=== PATIENT | female | born 1965 | race Caucasian/White ===

== ENCOUNTER → 2020-02-22 19:02 | Outpatient (CLI) | payer MEDICARE, SELFPAY ==
--- NOTE | ~2020-02-22 | XR_ITS ---
EXAMINATION: XR wrist LT 2V EXAM DATE: 02/22/2020 19:27 INDICATION: No known recent injury provided at this time. Pain of the left wrist. TECHNIQUE: Left wrist frontal, frontal with ulnar deviation, oblique and lateral projections obtained and reviewed. Correlation is made to left hand exam 08/30/2018. FINDINGS: Left wrist scapholunate joint space is maintained. There has been interval progression in the noticeable periarticular osteopenia, which can be a finding of rheumatoid arthritis. There are no bony erosions identified. 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 There are a rterial calcifications, arteriosclerosis. There are no acute fractures identified. No radiopaque fore ign bodies identified. IMPRESSION: Periarticular osteopenia. Reviewed, dictated and finalized at location G. IMPRESSION: Periarticular osteopenia.
== END ==
PROVIDERS: PCP Family Medicine; Visit Provider Family Medicine
DX: M25.532 Pain in left wrist (principal)
CPT/HCPCS: 73100

== ENCOUNTER 2021-04-24 11:30 | Outpatient (CLI) | payer MEDICARE, SELFPAY ==
[2021-04-24 19:25] LABS: Basophils Absolute Auto 0.1 K/mm3 (0.0-0.1); Basophils Percent Auto 1.1 % (0.2-1.2); Eosinophils Absolute Auto 0.5 K/mm3 (0-0.3); Eosinophils Percent Auto 7.1 % (0-4.4); Hematocrit 32.9 % (37.0-47.0); Hemoglobin 10.2 g/dL (12.0-15.0); Immature Granulocyte Absolute 0.01 K/mm3 (0.00-0.031); Immature Granulocyte Percent A 0.2 % (0-0.5); Lymphocytes Absolute Auto 1.65 K/mm3 (0.9-3.2); Lymphocytes Percent Auto 25.9 % (18.3-44.2); Mean Corpuscular Hemoglobin 26.4 pg (26-34); Mean Corpuscular Volume 85.2 fl (80-100); Mean Platelet Volume 11.1 fl (7.4-10.4); Monocytes Absolute Auto 0.5 K/mm3 (0.1-0.6); Neutrophils Absolute Auto 3.7 K/mm3 (1.3-6.7); Neutrophils Percent Auto 57.7 % (45.5-73.1); Platelet Count Result 279 k/mm3 (150-375); Red Blood Count 3.86 M/mm3 (4.2-5.4); Red Cell Distribution Width 13.5 % (11.5-14.5); White Blood Count 6.4 K/mm3 (4.5-10.0)
== END 2021-04-24 11:31 | disposition home or self-care (01) ==
PROVIDERS: PCP Family Medicine; Visit Provider Family Medicine
DX: M25.532 Pain in left wrist (principal); D64.9 Anemia, unspecified; N18.30 Chronic kidney disease, stage 3 unspecified; E10.9 Type 1 diabetes mellitus without complications
CPT/HCPCS: 36415; 85025

== ENCOUNTER 2022-06-10 14:21 | Outpatient (CLI) | payer MEDICARE, SELFPAY ==
--- NOTE | ~2022-06-10 | XR_ITS ---
EXAM: XR abdomen obstructive series DATE: 06/10/2022 14:44 HISTORY: rt sided abd pain x 4 weeks . COMPARISON: 02/09/2019. FINDINGS: Cholecystectomy clips. Clear lung bases. Normal bowel gas pattern. No organomegaly. No abno rmal abdominal calcification. Regional bones and soft tissues normal for age. IMPRESSION: No radiographic evidence of obstruction or ileus. Reviewed, dictated and finalized at location K. 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
[2022-06-10 18:40] LABS: Basophils Absolute Auto 0.1 K/mm3 (0.0-0.1); Basophils Percent Auto 0.8 % (0.2-1.2); Eosinophils Absolute Auto 0.5 K/mm3 (0-0.3); Eosinophils Percent Auto 6.2 % (0-4.4); Hematocrit 30.8 % (37.0-47.0); Hemoglobin 9.8 g/dL (12.0-15.0); Immature Granulocyte Absolute 0.02 K/mm3 (0.00-0.031); Immature Granulocyte Percent A 0.3 % (0-0.5); Lymphocytes Absolute Auto 1.58 K/mm3 (0.9-3.2); Lymphocytes Percent Auto 19.9 % (18.3-44.2); Mean Corpuscular HGB Conc 31.8 g/dl (32-36); Mean Corpuscular Hemoglobin 26.3 pg (26-34); Mean Corpuscular Volume 82.8 fl (80-100); Mean Platelet Volume 11.3 fl (7.4-10.4); Monocytes Absolute Auto 0.8 K/mm3 (0.1-0.6); Monocytes Percent Auto 9.8 % (2.6-8.5); Platelet Count Result 288 k/mm3 (150-375); Red Blood Count 3.72 M/mm3 (4.2-5.4)
[2022-06-10 18:53] LABS: Hemoglobin A1C 8.8 % (<5.7)
== END 2022-06-10 14:22 | disposition home or self-care (01) ==
PROVIDERS: PCP Family Medicine; Visit Provider Family Medicine
DX: R79.89 Other specified abnormal findings of blood chemistry (principal); G47.00 Insomnia, unspecified; R10.11 Right upper quadrant pain; M25.532 Pain in left wrist
CPT/HCPCS: 36415; 74019; 83036; 84443; 85025

== ENCOUNTER 2022-09-23 14:53 | Outpatient (CLI) | payer MEDICARE, SELFPAY ==
--- NOTE | ~2022-09-23 | XR_ITS ---
XR lumbar spine min 4V DATE: 09/23/2022 15:09 INDICATION: Lower back pain radiating down right leg TECHNIQUE: AP, lateral, coned lateral lumbosacral and bilateral oblique views COMPARISON: 04/30/2019 lumbar spine FINDINGS: There is mild thoracolumbar levoscoliosis. There is severe degenerative disc disease with eburnation, spurring and vacuum phenomenon at L2-3. There is moderate degenerative disc disease at L1-2 and L3-4. There is degenerative change at the apophyseal joints with minimal grade 1 anterolisthesis at L4-5. No spondylolysis. No fracture or bone destruction is evident. Included lower thoracic and lumbar pedicles are intact. There is degenerative change at the sacroiliac joints. The sacroiliac joints are otherwise unremarkab le. Surgical clips, right upper quadrant, consistent with cholecystectomy IMPRESSION: Mild thoracolumbar levoscoliosis Moderate degenerative change Reviewed, dictated and finalized at location A.
[2022-09-23 19:32] LABS: Basophils Absolute Auto 0.1 K/mm3 (0.0-0.1); Basophils Percent Auto 1.4 % (0.2-1.2); Eosinophils Absolute Auto 0.4 K/mm3 (0-0.3); Eosinophils Percent Auto 6.5 % (0-4.4); Hematocrit 32.2 % (37.0-47.0); Hemoglobin 10.3 g/dL (12.0-15.0); Immature Granulocyte Absolute 0.01 K/mm3 (0.00-0.031); Immature Granulocyte Percent A 0.2 % (0-0.5); Lymphocytes Absolute Auto 1.25 K/mm3 (0.9-3.2); Lymphocytes Percent Auto 18.9 % (18.3-44.2); Mean Corpuscular Hemoglobin 27.3 pg (26-34); Mean Corpuscular Volume 85.4 fl (80-100); Mean Platelet Volume 11.2 fl (7.4-10.4); Monocytes Absolute Auto 0.6 K/mm3 (0.1-0.6); Neutrophils Absolute Auto 4.3 K/mm3 (1.3-6.7); Platelet Count Result 275 k/mm3 (150-375); Red Blood Count 3.77 M/mm3 (4.2-5.4); Red Cell Distribution Width 14.7 % (11.5-14.5); White Blood Count 6.6 K/mm3 (4.5-10.0)
[2022-09-23 20:06] LABS: Iron 36 ug/dL (37-170)
[2022-09-23 20:08] LABS: Creatinine Urine 55.5 mg/dL
[2022-09-23 20:11] LABS: Alanine Aminotransferase 20 U/L (6-35); Albumin Level 4.2 g/dL (3.5-5.1); Alkaline Phosphatase 69 U/L (38-126); Anion Gap 4 mmol/L (8-16); Aspartate Amino Transferase 32 U/L (14-36); Bilirubin,Total 0.5 mg/dL (0.2-1.3); Blood Urea Nitrogen 23 mg/dL (7-17); Calcium 8.7 mg/dL (8.4-10.2); Carbon Dioxide 31 mmol/L (22-30); Chloride 103 mmol/L (98-107); Cholesterol 122 mg/dL (0-200); Estimated Glomerular Filt Rate > 60; Glucose 97 mg/dL (65-110); HDL Direct 51 mg/dL; Potassium 4.2 mmol/L (3.4-5.0); Sodium 138 mmol/L (137-145); Triglycerides 80 mg/dL (<150)
[2022-09-23 20:12] LABS: Percent Iron Saturation 9 % (20-50); Vitamin D 25 Hydroxy 37.3 ng/mL
[2022-09-23 20:16] LABS: Microalbumin Urine Random 49.4 mg/L (0-16.7)
[2022-09-23 20:26] LABS: LDL Cholesterol Direct 45 mg/dL
[2022-09-23 20:56] LABS: Hemoglobin A1C 7.9 % (<5.7)
== END 2022-09-23 14:54 | disposition home or self-care (01) ==
PROVIDERS: PCP Family Medicine; Visit Provider Family Medicine
DX: M54.50 Low back pain, unspecified (principal); E11.9 Type 2 diabetes mellitus without complications; D64.9 Anemia, unspecified; R79.89 Other specified abnormal findings of blood chemistry; E03.9 Hypothyroidism, unspecified; E78.5 Hyperlipidemia, unspecified; F32.9 Major depressive disorder, single episode, unspecified; G47.10 Hypersomnia, unspecified; M05.679 Rheumatoid arthritis of unspecified ankle and foot with involvement of other organs and systems; I12.9 Hypertensive chronic kidney disease with stage 1 through stage 4 chronic kidney disease, or unspecified chronic kidney disease; N18.30 Chronic kidney disease, stage 3 unspecified; M51.36 Other intervertebral disc degeneration, lumbar region
CPT/HCPCS: 36415; 72110; 80053; 80061; 82043; 82306; 82607; 83036; 83540; 83550; 84443; 85025

== ENCOUNTER 2023-01-05 10:12 | Inpatient (IN) | payer MEDICARE, SELFPAY ==
[2023-01-05] VITALS (35 sets, daily range): BP systolic 131–155; BP diastolic 45–65; PULSE 65–99; RESP 11–67; TEMP 36.1–36.9; O2SAT 96–100; BMI 26.1
--- NOTE | 2023-01-05 | ECHO_ITS ---
Patient Info Name: Lawanda Ingram Age: 57 years : 1965 Gender: Female Ht: 67 in Wt: 174 lbs BSA: 1.95 m2 HR: 73 bpm BP: 151 / 56 mmHg Heart Rhythm: Sinus Rhythm Technical Quality: Good Exam Date: 01/05/2023 3:48 PM Exam Location: [facility] Patient Status: Outpatient Admit Date: 01/05/2023 Staff Ordering Physician: Ricardo Camarillo DO Aoc Director Intelligence Officer: Brigitte Wetzel RDCS Attending Provider: Johnie Pratt MD Referring Physician: Marquise REESE; Exam Type: CA echo doppler color flow Study Info Indications - chest pain Complete two-dimensional, color flow and Doppler transthoracic echocardiogram is performed. Summary 1. Complete two-dimensional, color flow and Doppler transthoracic echocardiogram is performed. 2. Left ventricular chamber dimension is normal. 3. Left ventricular systolic function is normal, estimated at 60-65%. 4. The left ventricular diastolic function is grade I diastolic dysfunction. 5. E/e' 10 is mildly elevated. 6. There is trace tricuspid valve regurgitation. 7. No pulmonary hypertension, estimated pulmonary arterial systolic pressure is 12 mmHg. Left Ventricle E/e' 10 is mildly elevated. Left ventricular chamber dimension is normal. Left ventricular systolic function is normal, estimated at 60-65%. The left ventricular diastolic function is grade I diastolic dysfunction. Right Ventricle Right ventricular systolic function is normal and with normal TAPSE 1.9 cm. Right ventricular chamber dimension is normal. Left Atria Left atrial chamber dimension is normal. Right Atria Right atrial chamber dimension is normal. Aortic Valve The aortic valve is trileaflet. There is no aortic valve stenosis. There is no aortic valve regurgitation. Pulmonic Valve There is no pulmonic regurgitation. Mitral Valve There is no mitral valve stenosis. There is no mitral valve regurgitation. Tricuspid Valve There is trace tricuspid valve regurgitation. No pulmonary hypertension, estimated pulmonary arterial systolic pressure is 12 mmHg. Pericardium/Pleural There is no pericardial effusion. Inferior Vena Cava Normal inferior vena cava with >50% collapse upon inspiration consistent with normal right atrial pressure, 5 mmHg. Aorta The aortic root size at the sinus of Valsalva is normal. Left Ventricular Outflow Tract Name Value Normal LVOT 2D LVOT Diameter 1.8 cm LVOT Doppler LVOT Peak Gradient 5 mmHg LVOT Mean Gradient 3 mmHg LVOT VTI 27 cm LVOT VTI/AV VTI Ratio 0.9 LVOT Stroke Volume 71 ml LVOT CO 5.2 l/min LVOT CI 2.6 l/min/m2 Pulmonic Valve Name Value Normal RVOT Doppler RVOT Peak Gradient 2 mmHg PV Doppler
--- NOTE | ~2023-01-05 | NM_ITS ---
EXAMINATION: NM stephan stress w perfusion DATE: 01/06/2023 09:48 INDICATION: Chest pain TECHNIQUE: Rest images were obtained following intravenous administration of 11.9 mCi Tc99m tetrofosm in (Myoview). The patient was infused intravenously with Lexiscan (Regadenoson). Then, 33.3 mCi Tc99m tetrofosmin (Myoview) was administered intravenously, and stress images were obtained. Data was glen nstructed into short axis and horizontal and vertical long axis SPECT images. Gated SPECT images were also obtained. COMPARISON: None. FINDINGS: There is no definite reversible or fixed perfusion abnormality to suggest ischemia or infar ction. There is normal left ventricular chamber size, wall motion and ejection fraction. Left ventr icular ejection fraction measures >70%. IMPRESSION: 1. Normal myocardial perfusion at rest and during stress. 2. Left ventricular ejection fraction measuring >70%. Reviewed, dictated and finalized at location A.
--- NOTE | ~2023-01-05 | XR_ITS ---
Clinical Indication: Chest pain AP and lateral views of the chest: Comparison: 05/04/2019 Findings: The lungs are clear, without evidence of focal consolidation or pleural effusion. Cardiome diastinal silhouette is within normal limits. Bones and soft tissues are unremarkable. Impression: Normal chest. Reviewed, dictated and finalized at location . Impression: Normal chest.
--- NOTE | ~2023-01-05 | US_ITS ---
EXAMINATION: US biopsy lymph node DATE: 01/07/2023 12:53 INDICATION: Enlarged left axillary lymph node TECHNIQUE: The procedure including the risks and benefits was discussed with the patient. Risks discu ssed included bleeding and infection. The patient understood the risks and agreed to proceed. The sk in overlying the left axilla was prepped and draped in usual sterile fashion. Anesthetic was adminis tered with 1% lidocaine subcutaneously. A 14 gauge core biopsy needle was advanced under continuous ultrasound guidance to the enlarged left axillary lymph node of interest. 4 core biopsy specimens wer e obtained, 2 placed in RPMI media and 2 in formalin. The needle was removed and the entry site was c leaned and dressed. There were no immediate complications. FINDINGS: Ultrasound images demonstrate the biopsy needle advanced through the 2.3 x 1.7 x 1.1 cm lef t axillary lymph node of concern. IMPRESSION: 1. Successful ultrasound-guided biopsy of the 2.3 x 1.7 x 1.1 cm left axillary lymph node of concern. Reviewed, dictated and finalized at location A.
--- NOTE | ~2023-01-05 | CT_ITS ---
EXAMINATION: CTA chest abdomen pelvis DATE: 01/05/2023 12:48 INDICATION: Chest and abdominal pain TECHNIQUE: Computed tomographic angiography (CTA) of the chest, abdomen, and pelvis was performed wit hout and with 100 mL Omnipque-350 intravenous contrast. Maximum intensity projection 3D-reconstructio ns of the aorta and other arteries were constructed by the technologist on a separate workstation. Th e dose-length product (DLP) was 667.19 mGy-cm. Automated exposure control and iterative reconstructio n technique were employed. COMPARISON: 02/09/2019 FINDINGS: CHEST CTA: No aneurysm or dissection of the thoracic aorta. No pulmonary embolus identified. The lungs are free of acute opacities. No pleural effusion or pneumothorax. The heart size is normal. There is left axil erica lymphadenopathy. A left anterior descending coronary artery stent is noted. ABDOMEN AND PELVIS CTA: There are changes of cholecystectomy. The liver, spleen, pancreas, and adrenal glands are normal. The re is a 10 mm cortical-based soft tissue density mass at the lateral aspect of the right mid kidney. Small hypoattenuating lesion of left kidney are too small to characterize but likely represent cysts. No pathologically enlarged abdominal or pelvic lymph nodes are identified. No free intraperitoneal g as or evidence of bowel obstruction. The appendix is normal. No aneurysm or dissection of the abdominal aorta. The celiac axis, superior mesenteric artery, and in ferior mesenteric artery are normal at their origins. There are two right and one left renal arteries . There is mild calcified atherosclerosis of the abdominal aorta and large pelvic vessels without def inite hemodynamically significant stenosis. IMPRESSION: 1. No aneurysm or dissection of the aorta. 2. Left axillary lymphadenopathy which could be reactive versus metastatic disease versus lymphoma. C orrelation with mammography history is recommended. If normal, nonemergent ultrasound guided biopsy i s recommended. 3. Indeterminate right kidney mass. Follow-up with nonemergent MRI without and with contrast is recom mended. Reviewed, dictated and finalized at location L. IMPRESSION: 1. No aneurysm or dissection of the aorta. 2. Left axillary lymphadenopathy which could be reactive versus metastatic dise ase versus lymphoma. Correlation with mammography history is recommended. If no rmal, nonemergent ultrasound guided biopsy is recommended. 3. Indeterminate right kidney mass. Follow-up with nonemergent MRI without and with contrast is recommended.
--- NOTE | ~2023-01-05 | MR_ITS ---
MRI of the abdomen: Clinical indication: Renal mass. Technique: Coronal SSFSE ARC, WATER:coronal LAVA-FLEX, Coronal 2D FIESTA FatSat, Axial SSFSE BH ARC, Axial 3D DualEcho BH, Axial SSFSE-IR, Axial DWI b=500, Axial 2D FIESTA FatSat, pre and dynamic postco ntrast Axial LAVA ARC, postcontrast Coronal In and Opposed phase LAVA FLEX. Following intravenous adm inistration of 15 cc MultiHance gadolinium, T1-weighted fat-sat imaging was performed in the axial an d coronal planes. COMPARISON: CT scan dated 01/05/2023 Findings: Gallbladder is absent. The common bile duct is normal in course and caliber. No filling def ects are seen within the CBD. No evidence of intrahepatic biliary ductal dilatation. The pancreatic d uct is normal in size. Liver, spleen, pancreas, adrenals, and left kidney appear normal. The small right renal lesion seen o n recent CT scan is nearly imperceptible on MR imaging, possibly due to small size and respiratory mo tion artifact. No definite suspicious enhancement seen on postcontrast images at this location. There is a probable 5 mm nonenhancing lesion at this location. The aorta and the paraaortic regions appear normal. Impression: No definite suspicious lesion seen at the right kidney to correspond to the CT finding. Suspected 5 m m subtle nonenhancing lesion present, which suggests a benign finding. Given small size and poor visu alization on other MR sequences, consider one-year follow-up examination to reassess for any interval growth/change in the lesion. Reviewed, dictated and finalized at location M. Impression: No definite suspicious lesion seen at the right kidney to correspond to the CT finding. Suspected 5 mm subtle nonenhancing lesion present, which suggests a be nign finding. Given small size and poor visualization on other MR sequences, co nsider one-year follow-up examination to reassess for any interval growth/kim e in the lesion.
--- NOTE | 2023-01-05 10:21 | ECG_ITS ---
Measurements Intervals Parks Rate: 61 P: 35 DE: 165 QRS: 41 QRSD: 86 T: 21 QT: 389 QTc: 394 Interpretive Statements SINUS RHYTHM ANTEROSEPTAL MYOCARDIAL INFARCTION , OF INDETERMINATE AGE [40+ ms Q WAVE IN V1-V4] NO PREVIOUS ECG AVAILABLE FOR COMPARISON Electronically Signed On 01-05-2023 13:56:16 CDT by Chinmay De Jesus M.D.
--- NOTE | 2023-01-05 10:34 | PC.NURSE ---
pt sts that she developed c/p sternal radiating to bilat arms. PT sts pain lasted 10 minutes and was diaphoretic and sts she had a little SOB. pt placed on monitor. BS is over 300 and pt sts that she took 10 units of Humalog and didnt eat after injection.
[2023-01-05 10:41] LABS: Basophils Percent Auto 0.7 % (0.2-1.2); Eosinophils Absolute Auto 0.3 K/mm3 (0-0.3); Eosinophils Percent Auto 5.7 % (0-4.4); Hematocrit 29.4 % (37.0-47.0); Hemoglobin 9.5 g/dL (12.0-15.0); Immature Granulocyte Absolute 0.02 K/mm3 (0.00-0.031); Immature Granulocyte Percent A 0.3 % (0-0.5); Lymphocytes Absolute Auto 1.07 K/mm3 (0.9-3.2); Lymphocytes Percent Auto 18.5 % (18.3-44.2); Mean Corpuscular HGB Conc 32.3 g/dl (32-36); Mean Corpuscular Hemoglobin 27.9 pg (26-34); Mean Corpuscular Volume 86.2 fl (80-100); Mean Platelet Volume 10.5 fl (7.4-10.4); Monocytes Absolute Auto 0.5 K/mm3 (0.1-0.6); Monocytes Percent Auto 9.2 % (2.6-8.5); Neutrophils Absolute Auto 3.8 K/mm3 (1.3-6.7); Neutrophils Percent Auto 65.6 % (45.5-73.1); Platelet Count Result 218 k/mm3 (150-375); Red Blood Count 3.41 M/mm3 (4.2-5.4); Red Cell Distribution Width 14.8 % (11.5-14.5); White Blood Count 5.8 K/mm3 (4.5-10.0)
[2023-01-05 10:50] LABS: Alanine Aminotransferase 19 U/L (6-35); Albumin Level 3.5 g/dL (3.5-5.1); Alkaline Phosphatase 53 U/L (38-126); Anion Gap 3 mmol/L (8-16); Aspartate Amino Transferase 23 U/L (14-36); Bilirubin,Total 0.4 mg/dL (0.2-1.3); Blood Urea Nitrogen 27 mg/dL (7-17); Calcium 8.5 mg/dL (8.4-10.2); Carbon Dioxide 28 mmol/L (22-30); Chloride 103 mmol/L (98-107); Estimated CRCL calculation 58 ml/min; Estimated Glomerular Filt Rate > 60; Glucose 235 mg/dL (65-110); Lipase 39 U/L (23-300); Potassium 4.3 mmol/L (3.4-5.0); Sodium 134 mmol/L (137-145)
[2023-01-05 10:53] LABS: INR 1.1; Partial Thromboplastin Time 27.2 SECONDS (22.3-36.8); Prothrombin Time 14.3 Seconds (11.1-14.7)
--- NOTE | 2023-01-05 10:57 | PC.NURSE ---
pt sts that she was sitting down and she developed c/p that was sternal and radiates to bilat arms. pt has a flat affect and is crying. pt sts that pain lasted for 10 minutes and she was SOB, diaphoretic. pt sts that ems gave 3 NTG SL and started a 20g RAC. pt placed monitor and no ectopy was noted. pt is in NSR. vss and will continue to monitor
[2023-01-05 11:02] LABS: Troponin I < 0.012 ng/mL (0.000-0.034)
[2023-01-05 11:14] LABS: Appearance Urine Clear (Clear); Bilirubin Urine Negative (Negative); Blood Urine Negative (Negative); Color Urine Yellow (Yellow); Glucose Urine UA 3+ mg/dL (Negative); Ketones Urine Negative (Negative); Leukocyte Esterase Ur Negative LEU/UL (Negative); Nitrate Urine Negative (Negative); Protein Urine Negative (Negative); Specific Grav Ur 1.015 (1.001-1.035); Urobilinogen Urine 0.2 mg/dL (<2.0); pH Urine 6.5 (5.0-9.0)
[2023-01-05 11:18] LABS: Add Urine Microscopic? NO
[2023-01-05] MEDS: LACTATED RINGERS 1,000 ML 999 ML IV CONT (12:12)
[2023-01-05] MEDS: MORPHINE SULFATE (*CRX) 4 MG/ML INJ IV PUSH (12:13)
[2023-01-05] MEDS: ONDANSETRON INJ 4 MG/2 ML VIAL IV PUSH ×2 (12:14→18:50)
--- NOTE | 2023-01-05 12:38 | PC.NURSE ---
pt is having an anxiety attack and is demanding to be admitted and wants Ativan. notified
[2023-01-05 13:00] LABS: Glucose Point of Care 144 mg/dl (65-105)
--- NOTE | 2023-01-05 13:00 | ED.CHESTPAIN ---
HPI - Chest Pain General Chief Complaint: Chest Pain Stated Complaint: Chest Pain, Anxiety Time Seen by Provider: 01/05/23 11:10 Source: patient, EMS, RN notes reviewed and old records reviewed Mode of arrival: EMS Limitations: no limitations History of Present Illness HPI narrative: This is a 57 year old female with history of CAD s/p stent, hypertension, Anxiety, DM 1, GERD who presents for evaluation of chest pain. Patient states yesterday she had intermittent pain. She states this morning she has been having constant upper abdominal pain, midsternal chest pain that radiates to both arms. She reports tingling in both arms. She also reports nausea and generalized weakness. She was given nitro glycerin x 3 without improvement. EMS reports patient is upset about sick family member. She reports having last stent placed in 2019 and her cardiology physician is Dr. Camarillo. Related Data Home Medications Medication Instructions Recorded Confirmed aspirin 81 mg tablet,delayed 81 mg PO DAILY 05/22/19 01/05/23 release (Adult Low Dose Aspirin) etanercept 50 mg/mL (1 mL) 50 mg subcut WEEKLY 05/22/19 01/05/23 subcutaneous syringe (Enbrel) hydrocodone 7.5 mg-acetaminophen 1 tablet PO Q8H PRN Pain 05/22/19 01/05/23 325 mg tablet carvedilol 6.25 mg tablet 6.25 mg PO Q12H 01/05/23 01/05/23 docusate sodium 100 mg capsule 100 mg PO QPM 01/05/23 01/05/23 (Colace) gabapentin 600 mg tablet 600 mg PO HS 01/05/23 01/05/23 insulin glargine 100 unit/mL (3 18 unit subcut HS 01/05/23 01/05/23 mL) subcutaneous pen (Lantus Solostar U-100 Insulin) linaclotide 72 mcg capsule 72 mcg PO DAILY 01/05/23 01/05/23 (Linzess) lorazepam 1 mg tablet 1 mg PO BID PRN Anxiety 01/05/23 01/05/23 quinapril 10 mg tablet 10 mg PO 1700 01/05/23 01/05/23 zolpidem 5 mg tablet 2.5 mg PO QHS PRN Insomnia 01/05/23 01/05/23 Allergies Allergy/AdvReac Type Severity Reaction Status Date / Time amoxicillin Allergy Unknown Unknown Verified 01/05/23 10:25 celecoxib Allergy Unknown Unknown Verified 01/05/23 10:25 Review of Systems Constitutional: Constitutional: Reports weakness Cardiovascular: Cardiovascular: Reports chest pain, Denies syncope, Denies rapid heart rate, Denies irregular heart rhythm, Denies leg edema, Reports radiating jaw, neck or arm pain and Denies dyspnea Respiratory: Respiratory: Denies chest congestion, Denies hemoptysis, Denies excessive phlegm production and Denies dyspnea Gastrointestinal: Gastrointestinal: Denies abdominal pain, Denies hematochezia, Denies diarrhea, Reports nausea and Denies vomiting Genitourinary: Genitourinary: Denies hematuria and Denies dysuria Musculoskeletal: Musculoskeletal: Denies joint swelling, Denies loss of height and Denies muscle weakness Neurologic: Denies syncope, Denies focal weakness and Denies weakness [facility] Past Medical History Medical History (Updated 01/05/23 @ 20:32 by Brenda Aguero PA-C) Anxiety Cataract Chronic anemia Coronary artery disease Gastroesophageal reflux disease Hyperlipidemia Hypertension Rheumatoid arthritis Sinusitis (07/2019) Type 1 diabetes mellitus Surgical History Surgical History H/O breast biopsy History of cholecystectomy Family History Family History (Updated 01/05/23 @ 18:03 by Marianna Lang RN) Mother Family history of elevated blood lipids Patient's mother is in good health Hypertension Father Cerebrovascular accident Grandparent Acute myocardial infarction Cerebrovascular accident Sibling Throat cancer Social History Social History Smoking status: Never smoker Second hand tobacco smoke exposure: No Alcohol intake: never Substance use: never Lack of Transportation: No Lack of Food: Never True Current Housing: I Have Housing Concerned About Future Housing: No Difficulty Paying Gas/Electric Bills: No Diffic
[2023-01-05 14:20] LABS: Troponin I < 0.012 ng/mL (0.000-0.034)
--- NOTE | 2023-01-05 14:26 | PC.NURSE ---
all results back. family at bedside.
--- NOTE | 2023-01-05 15:25 | PC.NURSE ---
report called to josie
--- NOTE | 2023-01-05 15:35 | ADMGEN ---
This patient, Lawanda Ingram, was admitted to IMU Room 211-01. Patient/family oriented to hospital policies and general routines including ID bracelet, bed and alarms, visiting hours, pain management, procedures, bathroom and other care routines, personal items, smoking policy, room service/diet, and visiting hours. Information on how to activate the Rapid Response Team has been discussed. Patient/Family are encouraged to report perceived risks to care and to ask questions if they do not understand what they are told or what they should do.
[2023-01-05 16:07] LABS: Glucose Point of Care 143 mg/dl (65-105)
--- NOTE | 2023-01-05 16:23 | PM.CNCAR ---
Assessment and Plan Assessment and plan (1) Chest pain: Code(s): R07.9 - Chest pain, unspecified Status: Acute Assessment and Plan: Could be heartburn or musculoskeletal. CT r/o by serial troponin and EKG. Obtain echo. Obtain Lexiscan myoview stress test. (2) CAD (coronary artery disease): Code(s): I25.10 - Atherosclerotic heart disease of [place] coronary artery without angina pectoris Status: Acute (3) Hypertension: Code(s): I10 - Essential (primary) hypertension Status: Acute Assessment and Plan: Stable. (4) Hyperlipidemia: Code(s): E78.5 - Hyperlipidemia, unspecified Status: Acute Assessment and Plan: On Atorvastatin. (5) Hypersomnia: Code(s): G47.10 - Hypersomnia, unspecified Status: Acute Assessment and Plan: She has outpatient sleep study already ordered by her PCP. History of Present Illness History of Present Illness Consult date/time: 01/05/23 16:23 Reason For Visit: Chest Pain Narrative: 57 yr old woman who is my regular cardiology patient presents to ER with chest pain. She has a history of CAD, DM, hypertension, dyslipidemia, CKD stage III, anemia. Presents with her sister. States that for last couple of days she has random intermittent burning in her chest with tingling down both arms. She has ARENAS walking about 1 block but she has not done much walking. Admits to not sleeping well, waking up and daytime sleepiness. Denies sob, orthopnea, PND, edema, dizziness, palpitations. CARDIOVASCULAR PROCEDURES MANAGER NEWS: Cath ([facility]: LAD mid severe in stent restenosis of 70%; mod stenosis past distal edge of stent; PCI with SUAD to mid LAD) - 10/06/2018 Cath ([place], [place]: Stent to LAD with restenosis that required PTCA in 2004.) - 2002 ECHO/MUGA: Echo ([facility] in [place]: EF 60-70%, grade I diastolic dysfunction, trace MR.) - 10/06/2018 ELECTROPHYSIOLOGY: 11/07/21 EKG: Sinus rhythm, anteroseptal infarct, age indeterminate. VASCULAR: MARICEL (MARICEL right 1.4 and left 1.3. Biphasic waveforms suggestive of calcification but no significant stenosis.) - 02/15/2018 Review of Systems Review of Systems: All systems reviewed & are unremarkable except as noted in HPI and below Cardiovascular: Cardiovascular: Reports as per HPI, Reports chest pain, Denies irregular heart rhythm and Denies leg edema Respiratory: Respiratory: Reports as per HPI and Reports dyspnea on exertion Gastrointestinal: Gastrointestinal: Reports as per HPI and Denies abdominal pain Genitourinary: Genitourinary: Reports as per HPI and Denies dysuria Musculoskeletal: Musculoskeletal: Reports as per HPI Neurologic: Reports as per HPI, Denies dizziness and Denies syncope [facility] Past Medical History Medical History Anxiety Cataract Hyperlipidemia Hypertension Sinusitis (07/2019) Type 1 diabetes Surgical History Surgical History H/O breast biopsy History of cholecystectomy Family History Family History Mother Hypertension Patient's mother is in good health Family history of elevated blood lipids Father Cerebrovascular accident Grandparent Acute myocardial infarction Cerebrovascular accident Social History Social History Smoking status: Never smoker Second hand tobacco smoke exposure: No Alcohol intake: never Substance use: never Lack of Transportation: No Lack of Food: Never True Current Housing: I Have Housing Concerned About Future Housing: No Difficulty Paying Gas/Electric Bills: No Difficulty Paying for Meds: No Currently Unemployed: No Education: High School Diploma/GED Difficulty w/ Childcare or Family Care: No Living arrangements: with family Occupation/Education:
[2023-01-05 17:28] LABS: Troponin I < 0.012 ng/mL (0.000-0.034)
--- NOTE | 2023-01-05 17:55 | PM.IMHP ---
H&P: HPI History of Present Illness Date/Time: 01/05/23 16:30 Chief Complaint: Chest pain. Narrative: This is a 57-year-old female with coronary artery disease, hypertension, hyperlipidemia, anemia, chronic kidney disease, type 1 diabetes mellitus, rheumatoid arthritis, and other comorbidities who presented to the emergency department via EMS from home for evaluation of chest pain. The patient provides the following history. She has had intermittent, burning chest pain for the past 24 hours or so associated with mild dizziness, shortness of breath, nausea, sweats, and tingling in her arms. She sees no pattern as to when it occurs and denies that is related to exertion. With further questioning, the burning sensation seems to begin in the lower chest/upper abdominal area and radiates upwards. She had similar symptoms prior to her cardiac stent but she also occasionally has similar symptoms with her GERD. She has had increased stress recently as her brother has stage IV throat cancer and she was supposed to go visit him today. Vital signs were stable on arrival to the emergency department. Workup in the ED was pretty unrevealing. Initial troponin was negative. EKG showed sinus rhythm with Q-waves in V1 through V4. CT of the chest, abdomen, and pelvis shows no aneurysm or dissection of the aorta, left axillary lymphadenopathy (could be reactive versus metastatic versus lymphoma) and an indeterminate right kidney mass. Given her cardiac history she is being admitted to rule out acute coronary syndrome. Review of Systems Review of Systems: Twelve systems were reviewed. No fever, chills, or sweats. No cold or flu symptoms. She denies pleuritic pain, palpitations, sensations of racing heart. No orthopnea, paroxysmal nocturnal dyspnea, or lower extremity edema. Denies calf pain. No vomiting or diarrhea. No dysuria. No focal weakness. No hematuria. Denies weight loss. No history of malignancy. Except as documented, all other systems were reviewed and are negative. [facility] Past Medical History Medical History (Updated 01/06/23 @ 12:18 by Brenda Aguero PA-C) Anxiety Chronic anemia Coronary artery disease Depression Gastroesophageal reflux disease Gastroparesis Hyperlipidemia Hypertension Rheumatoid arthritis Sinusitis (07/2019) Type 1 diabetes mellitus Surgical History Surgical History (Updated 01/06/23 @ 12:17 by Brenda Aguero PA-C) History of bilateral cataract extraction History of breast biopsy History of cholecystectomy History of dilatation and curettage History of endometrial ablation Family History Family History Mother Family history of elevated blood lipids Patient's mother is in good health Hypertension Father Cerebrovascular accident Grandparent Acute myocardial infarction Cerebrovascular accident Sibling Throat cancer Social History Social History (Updated 01/06/23 @ 12:19 by Brenda Aguero PA-C) Social History: Surrogate medical decision maker: Erica Snider, sister. Code status: Full code. Smoking status: Never smoker Second hand tobacco smoke exposure: No Alcohol intake: never Substance use: never Lack of Transportation: No Lack of Food: Never True Current Housing: I Have Housing Concerned About Future Housing: No Difficulty Paying Gas/Electric Bills: No Difficulty Paying for Meds: No Currently Unemployed: No Education: Trade/Vocational Certificate Difficulty w/ Childcare or Family Care: No Living arrangements: with family Additional living arrangements comments: Lives with parents. Spiritual care concerns: No Meds Home Medications and Allergies Home Medications Medication Instructions Recorded Confirmed Type aspirin 81 mg tablet,delayed 81 mg PO DAILY 05/22/19 01/05/23 History release (Adult Low Dose Aspirin) etanercept 50 mg/mL (1 mL) 50 mg subcut WEEKLY 05/22/19 01/05/23 Hi
[2023-01-05] MEDS: DOCUSATE SODIUM 100 MG CAPSULE PO (18:50)
[2023-01-05] MEDS: GABAPENTIN 300 MG CAPSULE 600 MG PO (19:59)
[2023-01-05] MEDS: carvediloL 6.25 MG TABLET PO (19:59)
[2023-01-05] MEDS: ATORVASTATIN 20 MG TABLET BY MOUTH (19:59)
[2023-01-05] MEDS: INSULIN GLARGINE (*BKC) 100 UNITS/ML 18 UNITS SUB-Q (19:59)
[2023-01-05] MEDS: LORazepam (*CRX) 1 MG TABLET PO (20:02)
[2023-01-05] MEDS: PANTOPRAZOLE SODIUM IV 40 MG VIAL IV PUSH (20:04)
[2023-01-05 20:05] LABS: Glucose Point of Care 429 mg/dl (65-105)
[2023-01-05] MEDS: INSULIN ASPART (*BKC) 100 UNITS/ML 10 UNITS SUB-Q (20:11)
[2023-01-05] MEDS: ACETAMINOPHEN 325 MG TABLET 650 MG PO (21:07)
[2023-01-05] MEDS: MORPHINE SULFATE (*CRX) 4 MG/ML INJ 2 MG IV PUSH (21:56)
[2023-01-05] MEDS: lisinopriL 10 MG TABLET PO (21:56)
[2023-01-05] MEDS: ZOLPIDEM TARTRATE (*CRX) 5 MG TABLET 2.5 MG PO (23:25)
[2023-01-05 23:27] LABS: Glucose Point of Care 207 mg/dl (65-105)
[2023-01-06] VITALS (12 sets, daily range): BP systolic 117–154; BP diastolic 50–58; PULSE 66–88; RESP 16–20; TEMP 35.7–36.6; O2SAT 97–100
[2023-01-06 04:52] LABS: Hematocrit 28.1 % (37.0-47.0); Hemoglobin 9.1 g/dL (12.0-15.0); Mean Corpuscular HGB Conc 32.4 g/dl (32-36); Mean Corpuscular Hemoglobin 28.3 pg (26-34); Mean Corpuscular Volume 87.3 fl (80-100); Mean Platelet Volume 10.5 fl (7.4-10.4); Platelet Count Result 196 k/mm3 (150-375); Red Blood Count 3.22 M/mm3 (4.2-5.4); Red Cell Distribution Width 14.7 % (11.5-14.5); White Blood Count 4.6 K/mm3 (4.5-10.0)
[2023-01-06 05:08] LABS: Anion Gap 2 mmol/L (8-16); Blood Urea Nitrogen 23 mg/dL (7-17); Calcium 8.3 mg/dL (8.4-10.2); Carbon Dioxide 31 mmol/L (22-30); Chloride 97 mmol/L (98-107); Estimated CRCL calculation 58 ml/min; Estimated Glomerular Filt Rate > 60; Glucose 203 mg/dL (65-110); Potassium 4.3 mmol/L (3.4-5.0); Sodium 130 mmol/L (137-145)
[2023-01-06 05:19] LABS: Hemoglobin A1C 8.2 % (<5.7)
[2023-01-06 07:51] LABS: Glucose Point of Care 182 mg/dl (65-105)
--- NOTE | 2023-01-06 07:51 | PM.PNCARD ---
Progress Note: A&P Assessment and Plan (1) Chest pain: Code(s): R07.9 - Chest pain, unspecified Status: Acute Assessment and Plan: Could be heartburn or musculoskeletal. DC r/o by serial troponin and EKG. Obtain echo. Obtain Lexiscan myoview stress test. If above tests are unremarkable, no further cardiac workup is needed. (2) CAD (coronary artery disease): Code(s): I25.10 - Atherosclerotic heart disease of [place] coronary artery without angina pectoris Status: Acute (3) Hypertension: Code(s): I10 - Essential (primary) hypertension Status: Acute Assessment and Plan: Stable. (4) Hyperlipidemia: Code(s): E78.5 - Hyperlipidemia, unspecified Status: Acute Assessment and Plan: On Atorvastatin. (5) Hypersomnia: Code(s): G47.10 - Hypersomnia, unspecified Status: Acute Assessment and Plan: She has outpatient sleep study already ordered by her PCP. Subjective Date/time seen: 01/06/23 07:51 Interval history: Denies chest pain or sob at this moment. Exam Const: General: cooperative and comfortable Orientation/consciousness: oriented to person, oriented to place and oriented to time Resp: Auscultation: clear to auscultation bilaterally, no crackles, no rales, no rhonchi and no wheezes Cardio: Rate: regular rate Rhythm: regular rhythm Heart sounds: no murmurs Peripheral pulses: dorsalis pedis present Neuro: General: oriented to person, oriented to place and oriented to time Extrem: Right lower extremity: no edema Left lower extremity: no edema Objective Data Vital Signs Vital Signs: Vital Signs - 24 hr 01/05/23 10:19 01/05/23 10:24 01/05/23 10:32 Temperature 98.3 F Pulse Rate 68 72 72 Respiratory Rate 13 Blood Pressure 135/49 L Pulse Oximetry 98 Oxygen Delivery Room Air Fraction of Inspired Oxygen 01/05/23 10:19 01/05/23 10:21 01/05/23 10:30 Temperature Pulse Rate 73 66 73 Respiratory Rate 18 14 21 H Blood Pressure 135/49 L Pulse Oximetry 99 99 99 Oxygen Delivery Fraction of Inspired Oxygen 01/05/23 10:32 01/05/23 11:04 01/05/23 11:15 Temperature Pulse Rate 65 99 Respiratory Rate 11 L 25 H 21 H Blood Pressure 139/62 Pulse Oximetry 97 98 Oxygen Delivery Fraction of Inspired Oxygen 01/05/23 11:30 01/05/23 11:45 01/05/23 11:57 Temperature Pulse Rate 72 70 73 Respiratory Rate 17 20 22 H Blood Pressure 151/56 H Pulse Oximetry 96 98 99 Oxygen Delivery Fraction of Inspired Oxygen 01/05/23 11:58 01/05/23 12:00 01/05/23 12:02 Temperature Pulse Rate 77 Respiratory Rate 22 H 23 H 25 H Blood Pressure 146/49 H Pulse Oximetry 100 99 98 Oxygen Delivery Fraction of Inspired Oxygen 01/05/23 12:15 01/05/23 12:18 01/05/23 12:30 Temperature Pulse Rate 70 69 94 Respiratory Rate 17 21 H 19 Blood Pressure 154/60 H Pulse Oximetry 99 99 98 Oxygen Delivery Fraction of Inspired Oxygen 01/05/23 12:46 01/05/23 13:02 01/05/23 13:14 Temperature Pulse Rate 71 65 Respiratory Rate 67 H 12 16 Blood Pressure 151/65 H Pulse Oximetry 99 Oxygen Delivery Fraction of Inspired Oxygen 01/05/23 13:15 01/05/23 13:30 01/05/23 13:32 Temperature Pulse Rate 68 67 67 Respiratory Rate 19 12 13 Blood Pressure 142/60 H Pulse Oximetry 98 99 Oxygen Delivery Fraction of Inspired Oxygen 01/05/23 13:45 01/05/23 14:00 01/05/23 14:02 Temperature Pulse Rate 66 68 68 Respiratory Rate 14 13 13 Blood Pressure 155/59 H Pulse Oximetry 97 100 Oxygen Delivery Fraction of Inspired Oxygen 01/05/23 14:15 01/05/23 14:30 01/05/23 14:32 Temperature Pulse Rate 70 65 Respiratory Rate 13 12 Blood Pressure 131/61 Pulse Oximetry 98 Oxygen Delivery Fraction of Inspired Oxygen 01/05/23 14:48 01/05/23 16:00 01/05/23 16:00 Temperature 98.5 F Pulse Rate 69 70 71 Respiratory Rate 18 1
--- NOTE | 2023-01-06 08:00 | EST_ITS ---
Patient Info Name: Lawanda Ingram Age: 57 years : 1965 Gender: Female Ht: 67 in Wt: 166 lbs BSA: 1.90 m2 HR: 70 bpm BP: 153 / 64 mmHg Heart Rhythm: Sinus Rhythm Exam Date: 01/06/2023 8:48 AM Exam Location: [facility] Stress Patient Status: Outpatient Admit Date: 01/05/2023 Staff Ordering Physician: Ricardo Camarillo DO Attending Provider: Johnie Pratt MD Exercise Technologist: Sharda Montelongo CT Exercise Physician: Ricardo Camarillo DO Exam Type: CA stress stephan w NM Study Info Indications R07.89 - Other chest pain A regadenoson stress test was performed. Summary 1. 1. Negative Regadenason stress test for ischemic ST changes by ECG criteria. 2. 2. Baseline hypertension. 3. 3. Nuclear scan to follow and will be reported separately. Please correlate with it. 4. 4. Patient informed of the above results. Protocol: Lexiscan Stress ECG Details Stage: REST Duration (min): 0 min : 55 sec HR (bpm): 70 SBP (mmHg): 153 DBP (mmHg): 64 Stage: REST Duration (min): 5 min : 36 sec HR (bpm): 70 SBP (mmHg): 153 DBP (mmHg): 64 Stage: STAGE 1 Duration (min): 1 min : 0 sec HR (bpm): 100 SBP (mmHg): 153 DBP (mmHg): 64 Stage: RECOVERY Duration (min): 1 min : 0 sec HR (bpm): 105 SBP (mmHg): 157 DBP (mmHg): 46 Stage: RECOVERY Duration (min): 2 min : 0 sec HR (bpm): 98 SBP (mmHg): 157 DBP (mmHg): 46 Stage: RECOVERY Duration (min): 3 min : 0 sec HR (bpm): 92 SBP (mmHg): 162 DBP (mmHg): 59 Stage: RECOVERY Duration (min): 3 min : 2 sec HR (bpm): 91 SBP (mmHg): 162 DBP (mmHg): 59 Rest HR: 70 bpm Peak HR: 110 bpm Rest Sys BP: 153 mmHg Peak Sys BP: 162 mmHg Max Pred HR: 162 bpm % Max Pred HR: 68 % Target HR: 138 bpm Max RPP: 17,820 bpm*mmHg Termination Reason: Completed protocol Cardiac Symptoms: Shortness of breath, Chest discomfort Total Time: 1 min : 0 sec Rest Deng BP: 64 mmHg Peak Deng BP: 59 mmHg Total Dose: 0.4 mg Resting ECG Sinus rhythm. Stress ECG No ST changes. Arrhythmias None. Report Signatures
[2023-01-06] MEDS: PANTOPRAZOLE SODIUM IV 40 MG VIAL IV PUSH (09:59)
[2023-01-06] MEDS: carvediloL 6.25 MG TABLET PO ×2 (09:59→20:47)
[2023-01-06] MEDS: ASPIRIN 81 MG ENTERIC TABLET PO (09:59)
[2023-01-06 11:39] LABS: Glucose Point of Care 236 mg/dl (65-105)
[2023-01-06] MEDS: polyethylene glycoL 3350 17 GM POWD.PACK PO (11:43)
[2023-01-06] MEDS: HYDROcodone/acetaminophen (*CRX) 7.5-325 MG TABLET 1 TAB PO (11:44)
[2023-01-06] MEDS: DOCUSATE SODIUM 100 MG CAPSULE PO (11:44)
--- NOTE | 2023-01-06 12:57 | PM.IMPN ---
Progress Note: A&P Assessment and Plan (1) Chest pain: Code(s): R07.9 - Chest pain, unspecified Status: Acute Assessment and Plan: stress test neg (2) Coronary artery disease: Code(s): I25.10 - Atherosclerotic heart disease of [place] coronary artery without angina pectoris Status: Acute (3) Axillary lymphadenopathy: Code(s): R59.0 - Localized enlarged lymph nodes Status: Acute Assessment and Plan: bx ordered (4) Right kidney mass: Code(s): N28.89 - Other specified disorders of kidney and ureter Status: Acute Assessment and Plan: mri ordered (5) Hypertension: Code(s): I10 - Essential (primary) hypertension Status: Acute (6) Type 1 diabetes mellitus: Code(s): E10.9 - Type 1 diabetes mellitus without complications Status: Acute (7) Chronic anemia: Code(s): D64.9 - Anemia, unspecified Status: Acute (8) Gastroesophageal reflux disease: Code(s): K21.9 - Gastro-esophageal reflux disease without esophagitis Status: Acute Subjective Date/time seen: 01/06/23 12:57 Interval history: still having some abd pain cp resolved Exam Const: Other: Nontoxic-appearing female sitting up in bed. Weight: 75.7 kg. BMI: 26.1. HENMT: Other: Normocephalic, atraumatic. Nares pain bilaterally. Oral mucosa moist. Eyes: Other: Pupils are reactive. Extraocular motions intact. Sclerae anicteric. Neck: Other: Normal neck. Chest: Other: No tenderness to palpation over the chest wall. Resp: Other: Respirations are nonlabored. Lungs are clear to auscultation. Cardio: Other: Regular rate rhythm with normal S1-S2. GI: Other: Abdomen is soft, nontender, and nondistended with positive bowel sounds. Skin: Other: Warm and dry. Neuro: Other: Alert. Cranial nerves 2-12 are grossly intact. No gross focal deficits to casual conversation. Extrem: Other: No cyanosis, clubbing, or edema. Peripheral pulses intact. Psych: Other: Cooperative. Depressed mood with flat affect. Objective Data Vital Signs Vital Signs: Vital Signs - 24 hr 01/05/23 13:02 01/05/23 13:14 01/05/23 13:15 Temperature Pulse Rate 71 65 68 Respiratory Rate 12 16 19 Blood Pressure 151/65 H Pulse Oximetry 99 Oxygen Delivery Fraction of Inspired Oxygen 01/05/23 13:30 01/05/23 13:32 01/05/23 13:45 Temperature Pulse Rate 67 67 66 Respiratory Rate 12 13 14 Blood Pressure 142/60 H Pulse Oximetry 98 99 97 Oxygen Delivery Fraction of Inspired Oxygen 01/05/23 14:00 01/05/23 14:02 01/05/23 14:15 Temperature Pulse Rate 68 68 70 Respiratory Rate 13 13 13 Blood Pressure 155/59 H Pulse Oximetry 100 98 Oxygen Delivery Fraction of Inspired Oxygen 01/05/23 14:30 01/05/23 14:32 01/05/23 14:48 Temperature Pulse Rate 65 69 Respiratory Rate 12 18 Blood Pressure 131/61 Pulse Oximetry 98 Oxygen Delivery Fraction of Inspired Oxygen 01/05/23 16:00 01/05/23 16:00 01/05/23 18:00 Temperature 98.5 F Pulse Rate 70 71 77 Respiratory Rate 18 Blood Pressure 149/45 H Pulse Oximetry 100 Oxygen Delivery Fraction of Inspired Oxygen 01/05/23 19:59 01/05/23 20:00 01/05/23 21:24 Temperature 97.0 F L Pulse Rate 71 99 99 Respiratory Rate 20 Blood Pressure 153/54 H Pulse Oximetry 97 97 Oxygen Delivery Room Air Fraction of Inspired Oxygen 21 01/05/23 20:00 01/05/23 23:26 01/06/23 00:00 Temperature 97.6 F Pulse Rate 71 68 78 Respiratory Rate 18 18 Blood Pressure 131/61 Pulse Oximetry 98 Oxygen Delivery Room Air Room Air Fraction of Inspired Oxygen 21 01/05/23 20:00 01/06/23 00:00 01/06/23 02:00 Temperature Pulse Rate 83 83 79 Respiratory Rate Blood Pressure Pulse Oximetry Oxygen Delivery Fraction of Inspired Oxygen 01/06/23 03:06
[2023-01-06] MEDS: INSULIN ASPART (*BKC) 100 UNITS/ML 12 UNITS SUB-Q ×2 (13:27→18:00)
[2023-01-06] MEDS: INSULIN ASPART (*BKC) 100 UNITS/ML SUB-Q ×2 (14:53→18:01)
--- NOTE | 2023-01-06 15:55 | PC.NURSE ---
This patient, Lawanda Ingram, was transferred to [facility] on 01/06/23 at 1601. Personal belongings sent with patient. Report given. Appropriate documentation sent with patient.
[2023-01-06] MEDS: LORazepam (*CRX) 1 MG TABLET PO (16:14)
[2023-01-06 16:29] LABS: Glucose Point of Care 357 mg/dl (65-105)
[2023-01-06] MEDS: lisinopriL 10 MG TABLET PO (17:58)
--- NOTE | 2023-01-06 18:04 | PHAR ---
DRUG NAME: NICO INGREDIENTS: LINACLOTIDE -- 72 MCG RELATED DOCUMENTS: DRUGDEX EVALUATIONS - LINACLOTIDE COLOR: WHITE TO OFF-WHITE [place] SHAPE: CAPSULE-SHAPE IMPRINT: FL 72 FORM: ORAL CAPSULE
[2023-01-06] MEDS: DOCUSATE SODIUM 100 MG CAPSULE 200 MG PO (20:45)
[2023-01-06] MEDS: GABAPENTIN 300 MG CAPSULE 600 MG PO (20:45)
[2023-01-06] MEDS: ATORVASTATIN 20 MG TABLET BY MOUTH (20:45)
[2023-01-06] MEDS: INSULIN GLARGINE (*BKC) 100 UNITS/ML 18 UNITS SUB-Q (20:51)
[2023-01-06 20:54] LABS: Glucose Point of Care 191 mg/dl (65-105)
[2023-01-06] MEDS: ZOLPIDEM TARTRATE (*CRX) 5 MG TABLET 2.5 MG PO (22:54)
[2023-01-07 06:00] VITALS: BP 142/51; PULSE 71; RESP 14; TEMP 35.9; O2SAT 100
[2023-01-07 07:49] LABS: Glucose Point of Care 204 mg/dl (65-105)
[2023-01-07] MEDS: ASPIRIN 81 MG ENTERIC TABLET PO (08:20)
[2023-01-07] MEDS: PANTOPRAZOLE 40 MG TABLET PO (08:21)
[2023-01-07 08:23] VITALS: PULSE 80
[2023-01-07] MEDS: carvediloL 6.25 MG TABLET PO (08:23)
--- NOTE | 2023-01-07 08:27 | PC.NURSE ---
Patient states she did not sleep well overnight and would like to sleep for another hour. RN is holding insulin until patient is awake and ready to eat.
[2023-01-07 08:30] VITALS: PULSE 80; O2SAT 97
--- NOTE | 2023-01-07 08:52 | PM.PNCARD ---
Progress Note: A&P Assessment and Plan (1) Chest pain: Code(s): R07.9 - Chest pain, unspecified Status: Acute Assessment and Plan: Could be heartburn or musculoskeletal. OR r/o by serial troponin and EKG. 01/06/23 Echo: 60-65%, grade I diastolic dysfunction (E/e' 10), trace TR. 01/06/23 Lexiscan myoview stress test is unremarkable. No further cardiac workup is needed. (2) CAD (coronary artery disease): Code(s): I25.10 - Atherosclerotic heart disease of [place] coronary artery without angina pectoris Status: Acute (3) Hypertension: Code(s): I10 - Essential (primary) hypertension Status: Acute Assessment and Plan: Stable. (4) Hyperlipidemia: Code(s): E78.5 - Hyperlipidemia, unspecified Status: Acute Assessment and Plan: On Atorvastatin. (5) Hypersomnia: Code(s): G47.10 - Hypersomnia, unspecified Status: Acute Assessment and Plan: She has outpatient sleep study already ordered by her PCP. Subjective Date/time seen: 01/07/23 08:52 Interval history: Denies chest pain or sob at this moment. Exam Const: General: cooperative and comfortable Orientation/consciousness: oriented to person, oriented to place and oriented to time Resp: Auscultation: clear to auscultation bilaterally, no crackles, no rales, no rhonchi and no wheezes Cardio: Rate: regular rate Rhythm: regular rhythm Heart sounds: no murmurs Peripheral pulses: dorsalis pedis present Neuro: General: oriented to person, oriented to place and oriented to time Extrem: Right lower extremity: no edema Left lower extremity: no edema Objective Data Vital Signs Vital Signs: Vital Signs - 24 hr 01/06/23 09:45 01/06/23 09:59 01/06/23 10:00 Temperature 96.3 F L Pulse Rate 83 72 72 Respiratory Rate 16 Blood Pressure 154/54 H Pulse Oximetry 100 01/06/23 16:00 01/06/23 20:47 01/06/23 21:31 Temperature 97.7 F 97.2 F L Pulse Rate 74 82 82 Respiratory Rate 20 16 Blood Pressure 128/58 L 122/50 L Pulse Oximetry 100 100 01/07/23 06:00 01/07/23 08:23 Temperature 96.7 F L Pulse Rate 71 80 Respiratory Rate 14 Blood Pressure 142/51 H Pulse Oximetry 100 Intake/Output Intake/Output: Intake & Output 01/04/23 01/05/23 01/06/23 01/07/23 23:59 23:59 23:59 23:59 Intake Total 1480 472 360 Output Total 650 1250 Balance 830 -778 360 Meds/Results Medications: Active Medications Generic Name Dose Route Start Last Admin Trade Name Freq PRN Reason Stop Dose Admin Acetaminophen 650 mg 01/05/23 21:49 01/05/23 21:07 Acetaminophen 325 Mg Tablet PO 650 mg Q6H PRN Administration Mild Pain (1-3) or Fever Hydrocodone Bitart/Acetaminophen 1 tab 01/05/23 17:56 01/06/23 11:44 Hydrocodone/Acetaminophen (*Crx) 7.5-325 Mg Tablet PO 1 tab Q8H PRN Administration [place] pain scale 4-6 Aspirin 81 mg 01/06/23 09:00 01/07/23 08:20 Aspirin 81 Mg Enteric Tablet PO 81 mg DAILY SEBASTIAN Administration Atorvastatin Calcium 20 mg 01/05/23 21:00 01/06/23 20:45 Atorvastatin 20 Mg Tablet BY MOUTH 20 mg HS SEBASTIAN Administration Carvedilol 6.25 mg 01/06/23 09:00 01/07/23 08:23 Carvedilol 6.25 Mg Tablet PO 6.25 mg Q12H SEBASTIAN Administration Dextrose 12.5 gm 01/05/23 17:55 Dextrose 50% 25 Gm/50 Ml Syringe IV PUSH PRN PRN Hypoglycemia Protocol Docusate Sodium 200 mg 01/06/23 21:00 01/06/23 20:45 Docusate Sodium 100 Mg Capsule PO 200 mg HS SEBASTIAN Administration Gabapentin 600 mg 01/05/23 21:00 01/06/23 20:45 Gabapentin 300 Mg Capsule PO 600 mg HS SEBASTIAN Administration Glucagon 1 mg 01/05/23 17:55 Glucagon For Inj 1 Mg Vial IM PRN PRN Hypoglycemia Protocol Glucose 15 gm 01/05/23 17:55 Glucose Oral Gel 15 Gm Of Glucse In 37.5 Gm Tube PO PRN PRN Hypoglycemia Protocol Home Med 1 each 01/06/23 09:00 01/07/23 08:24 (Linaclotide
[2023-01-07] MEDS: INSULIN ASPART (*BKC) 100 UNITS/ML SUB-Q ×2 (09:40→13:04)
[2023-01-07] MEDS: INSULIN ASPART (*BKC) 100 UNITS/ML 12 UNITS SUB-Q ×2 (09:40→13:04)
[2023-01-07] MEDS: ACETAMINOPHEN 325 MG TABLET 650 MG PO (09:49)
[2023-01-07] MEDS: LORazepam (*CRX) 1 MG TABLET PO (10:51)
[2023-01-07 11:37] LABS: Glucose Point of Care 263 mg/dl (65-105)
--- NOTE | 2023-01-07 13:41 | PM.DS ---
DS: Admitting Diagnosis Discharge Date 01/07/23 Admitting Diagnosis chest pain DS: Discharge Diagnosis Discharge Diagnosis (1) Chest pain: Code(s): R07.9 - Chest pain, unspecified Status: Acute Assessment and Plan: stress test neg (2) Coronary artery disease: Code(s): I25.10 - Atherosclerotic heart disease of [place] coronary artery without angina pectoris Status: Acute (3) Axillary lymphadenopathy: Code(s): R59.0 - Localized enlarged lymph nodes Status: Acute Assessment and Plan: bx ordered (4) Right kidney mass: Code(s): N28.89 - Other specified disorders of kidney and ureter Status: Acute Assessment and Plan: mri ordered (5) Hypertension: Code(s): I10 - Essential (primary) hypertension Status: Acute (6) Type 1 diabetes mellitus: Code(s): E10.9 - Type 1 diabetes mellitus without complications Status: Acute (7) Chronic anemia: Code(s): D64.9 - Anemia, unspecified Status: Acute (8) Gastroesophageal reflux disease: Code(s): K21.9 - Gastro-esophageal reflux disease without esophagitis Status: Acute DS: Summary Hospital Course Hospital Course: admitted for [facility] w cath showed chronic cad - medical mgmt otherwise patient dx with renal lesion w mri that showed nothing concerning and recommended fu mri in one year, patient is aware and will schedule this on her own Ct scan revealed she had LAD of left axilla and bx was performed, this will need to be followed up with by her pcp - patient is fully aware that results may take a week or so Time Spent with Patient Time attestation: Total time spent providing and/or coordinating discharge services: Exam Const: Other: Nontoxic-appearing female sitting up in bed. Weight: 75.7 kg. BMI: 26.1. HENMT: Other: Normocephalic, atraumatic. Nares pain bilaterally. Oral mucosa moist. Eyes: Other: Pupils are reactive. Extraocular motions intact. Sclerae anicteric. Neck: Other: Normal neck. Chest: Other: No tenderness to palpation over the chest wall. Resp: Other: Respirations are nonlabored. Lungs are clear to auscultation. Cardio: Other: Regular rate rhythm with normal S1-S2. GI: Other: Abdomen is soft, nontender, and nondistended with positive bowel sounds. Skin: Other: Warm and dry. Neuro: Other: Alert. Cranial nerves 2-12 are grossly intact. No gross focal deficits to casual conversation. Extrem: Other: No cyanosis, clubbing, or edema. Peripheral pulses intact. Psych: Other: Cooperative. Depressed mood with flat affect. DS: Data Data Completed and Pending Labs on day of discharge: Labs from last 24 hours 01/07/23 01/07/23 01/07/23 13:33 11:34 07:24 POC Capillary Glucose 263 H 204 H Urine Color Pending Urine Appearance Pending Urine pH Pending Ur Specific [place] Pending Urine Protein Pending Urine Glucose (UA) Pending Urine Ketones Pending Ur Blood (Man) Pending Urine Nitrate Pending Urine Bilirubin Pending Urine Urobilinogen Pending Ur Leukocyte Esterase Pending 01/06/23 01/06/23 20:48 16:16 POC Capillary Glucose 191 H 357 H Urine Color Urine Appearance Urine pH Ur Specific [place] Urine Protein Urine Glucose (UA) Urine Ketones Ur Blood (Man) Urine Nitrate Urine Bilirubin Urine Urobilinogen Ur Leukocyte Esterase Discharge Plan Discharge Attending physician on discharge: Tyrone Roman Consulting providers: Ricardo Camarillo Discharging Clinician: Tyrone Roman Patient Disposition: Home, Self-Care Activity: as tolerated Diet: as tolerated Patient Instructions: Antibiotic Form Stand Alone Forms: General Discharge Information Follow-up/Referrals: Gerber Dorsey MD [Primary Care Provider] - Discharge Medications: Continued
[2023-01-07 13:44] LABS: Appearance Urine Clear (Clear); Bilirubin Urine Negative (Negative); Blood Urine Negative (Negative); Color Urine Yellow (Yellow); Glucose Urine UA 1+ mg/dL (Negative); Ketones Urine Negative (Negative); Leukocyte Esterase Ur Negative LEU/UL (NEGATIVE); Nitrate Urine Negative (Negative); Protein Urine Negative (Negative); Specific Grav Ur 1.011 (1.001-1.035); Urobilinogen Urine 0.2 mg/dL (<2.0)
[2023-01-07 14:00] VITALS: BP 116/51; PULSE 74; RESP 16; TEMP 36.6; O2SAT 100
[2023-01-07 14:03] LABS: Add Urine Microscopic? NO
[2023-01-07 15:56] LABS: Glucose Point of Care 61 mg/dl (65-105)
[2023-01-07 16:35] LABS: Glucose Point of Care 110 mg/dl (65-105)
--- NOTE | 2023-01-07 17:12 | PC.NURSE ---
Patient called out when she got a BG reading of 56 on her personal machine. Upon checking with the hospital glucometer the BG was 61 at 1550. The RN gave the patient apple juice, crackers and peanut butter. After the snacks the BG was checked at 1630 and was 110. Shortly after the trays arrived the RN noticed the patient had sent her tray back and stated she would not be eating because she wanted insulin first. This RN called Dr Roman notified him of the situation. MD would like all insulin orders to be held while patient is not eating.
== END 2023-01-07 17:53 | disposition home or self-care (01) | DRG 264 ==
LOC: ANHED 11:10 → ANHIMU 14:54 → ANH3MEDSUR 01-06 16:00
PROVIDERS: Physician Assistant; Admitting Provider Internal Medicine; Emergency Provider General Practice; PCP Family Medicine; Visit Provider Chiropractor
DX: R07.89 Other chest pain (principal); I25.10 Atherosclerotic heart disease of native coronary artery without angina pectoris; I12.9 Hypertensive chronic kidney disease with stage 1 through stage 4 chronic kidney disease, or unspecified chronic kidney disease; N18.30 Chronic kidney disease, stage 3 unspecified; R59.0 Localized enlarged lymph nodes; N28.89 Other specified disorders of kidney and ureter; E78.5 Hyperlipidemia, unspecified; E10.22 Type 1 diabetes mellitus with diabetic chronic kidney disease; M06.9 Rheumatoid arthritis, unspecified; K21.9 Gastro-esophageal reflux disease without esophagitis; G47.10 Hypersomnia, unspecified; F41.9 Anxiety disorder, unspecified; Z95.5 Presence of coronary angioplasty implant and graft; Z79.82 Long term (current) use of aspirin; Z79.4 Long term (current) use of insulin
CPT/HCPCS: 36415; 38505; 71046; 71275; 74174; 74183; 76942; 78452; 80048; 80053; 81003; 82948; 83036; 83690; 84484; 85025; 85027; 85610; 85730; 88184; 88185; 88305; 88341; 88342; 93005; 93017; 93306; 96361; 96374; 96375; 96376; 99285; A9270; A9502; A9577; C9113; G0378; J1815; J2270; J2405; J2785; J7120; Q9967

== ENCOUNTER 2023-01-11 15:20 | Outpatient (CLI) | payer MEDICARE, SELFPAY ==
[2023-01-11 19:29] LABS: Basophils Absolute Auto 0.1 K/mm3 (0.0-0.1); Basophils Percent Auto 0.9 % (0.2-1.2); Eosinophils Absolute Auto 0.4 K/mm3 (0-0.3); Eosinophils Percent Auto 6.7 % (0-4.4); Hematocrit 32.4 % (37.0-47.0); Hemoglobin 10.3 g/dL (12.0-15.0); Immature Granulocyte Absolute 0.01 K/mm3 (0.00-0.031); Immature Granulocyte Percent A 0.2 % (0-0.5); Lymphocytes Absolute Auto 1.19 K/mm3 (0.9-3.2); Lymphocytes Percent Auto 22.2 % (18.3-44.2); Mean Corpuscular HGB Conc 31.8 g/dl (32-36); Mean Platelet Volume 10.8 fl (7.4-10.4); Monocytes Absolute Auto 0.5 K/mm3 (0.1-0.6); Monocytes Percent Auto 8.9 % (2.6-8.5); Neutrophils Absolute Auto 3.3 K/mm3 (1.3-6.7); Neutrophils Percent Auto 61.1 % (45.5-73.1); Platelet Count Result 257 k/mm3 (150-375); Red Blood Count 3.68 M/mm3 (4.2-5.4); Red Cell Distribution Width 15.1 % (11.5-14.5); White Blood Count 5.4 K/mm3 (4.5-10.0)
[2023-01-11 19:55] LABS: Vitamin D 25 Hydroxy 28.9 ng/mL
[2023-01-11 20:39] LABS: Alanine Aminotransferase 23 U/L (6-35); Albumin Level 4.2 g/dL (3.5-5.1); Alkaline Phosphatase 76 U/L (38-126); Anion Gap 6 mmol/L (8-16); Aspartate Amino Transferase 36 U/L (14-36); Bilirubin,Total 0.5 mg/dL (0.2-1.3); Blood Urea Nitrogen 29 mg/dL (7-17); Calcium 9.1 mg/dL (8.4-10.2); Carbon Dioxide 29 mmol/L (22-30); Chloride 100 mmol/L (98-107); Cholesterol 128 mg/dL (0-200); Estimated Glomerular Filt Rate 57; Glucose 193 mg/dL (65-110); HDL Direct 46 mg/dL; Potassium 4.5 mmol/L (3.4-5.0); Sodium 135 mmol/L (137-145); Triglycerides 89 mg/dL (<150)
[2023-01-11 20:50] LABS: LDL Cholesterol Direct 51 mg/dL
[2023-01-11 20:57] LABS: Hemoglobin A1C 8.1 % (<5.7)
== END 2023-01-11 15:21 | disposition home or self-care (01) ==
PROVIDERS: PCP Family Medicine; Visit Provider Nurse Practitioner Adult Health
DX: E11.9 Type 2 diabetes mellitus without complications (principal); D64.9 Anemia, unspecified; E03.9 Hypothyroidism, unspecified; E55.9 Vitamin D deficiency, unspecified
CPT/HCPCS: 36415; 80053; 80061; 82306; 83036; 84443; 85025

== ENCOUNTER 2023-04-30 13:52 | Emergency (ER) | payer MEDICARE, SELFPAY ==
[2023-04-30] VITALS (25 sets, daily range): BP systolic 142–170; BP diastolic 55–71; PULSE 67–164; RESP 10–23; TEMP 36.2–36.5; O2SAT 98–100
--- NOTE | ~2023-04-30 | CT_ITS ---
EXAMINATION: CT brain wo con DATE: 05/01/2023 01:15 INDICATION: Dizziness. TECHNIQUE: Computed tomography (CT) of the head was performed without intravenous contrast. The dose- length product was 605.33 mGy-cm. Automated exposure control and iterative reconstruction technique w ere employed. COMPARISON: None FINDINGS: There is an old left frontal lobe infarction involving the centrum semiovale. There are sca ttered mild periventricular and subcortical white matter changes, most likely related to small vessel ischemic disease (microangiopathy). There is intracranial atherosclerosis. No ventriculomegaly or mi dline shift. Basilar cisterns are patent. No acute intracranial hemorrhage, infarction, mass or mass effect. Paranasal sinuses and mastoids are pneumatized. No depressed skull fractures. IMPRESSION: 1. No acute intracranial abnormality. 2: Chronic left frontal lobe infarction. 2: Chronic age-related findings. Reviewed, dictated and finalized at location A.
--- NOTE | ~2023-04-30 | US_ITS ---
EXAMINATION: US venous doppler LE RT DATE: 04/30/2023 21:23 INDICATION: Right lower limb pain TECHNIQUE: Melissa scale images without and with compression and Doppler images of the right lower extre mity veins were obtained. COMPARISON: None FINDINGS: The right common femoral vein, profunda femoral vein, femoral vein, popliteal vein, peronea l trunk, posterior tibial veins, and greater saphenous vein are patent. IMPRESSION: 1. Patent right lower extremity veins. No evidence of deep venous thrombosis. Reviewed, dictated and finalized at location F.
--- NOTE | ~2023-04-30 | XR_ITS ---
XR chest 2V DATE: 04/30/2023 14:40 INDICATION: Chest pain, shortness of breath TECHNIQUE: AP and lateral views COMPARISON: 01/05/2023 CT chest 01/05/2023 2 view chest FINDINGS: Heart size is within normal limits. Left anterior descending coronary artery stent. Aortic arch calcification. No hilar or mediastinal enlargement. No pulmonary infiltrate or consolidation, pleural effusion or pu lmonary vascular congestion or pneumothorax is detected. Status post cholecystectomy. Included skeletal structures are unremarkable other than minimal dextroscoliosis of the thoracic spin e, mild degenerative change of the thoracic and to a greater extent lumbar spine. IMPRESSION: No active cardiopulmonary disease Left anterior descending coronary artery stent Aortic arch calcification Reviewed, dictated and finalized at location B.
--- NOTE | 2023-04-30 13:55 | ECG_ITS ---
Measurements Intervals [place] Rate: 69 P: 43 CO: 167 QRS: 33 QRSD: 89 T: 30 QT: 362 QTc: 389 Interpretive Statements SINUS RHYTHM PREVIOUS sEPTAL MYOCARDIAL INFARCTION ABNORMAL ECG COMPARED TO ECG 01/05/2023 10:25:53 NO SIGNIFICANT CHANGES Electronically Signed On 05-01-2023 8:45:48 CDT by Tyrone Milan M.D.
[2023-04-30 14:09] LABS: Glucose Point of Care 122 mg/dl (65-105)
[2023-04-30 14:50] LABS: Glucose Point of Care 120 mg/dl (65-105)
[2023-04-30 17:10] LABS: Basophils Absolute Auto 0.1 K/mm3 (0.0-0.1); Basophils Percent Auto 1.3 % (0.2-1.2); Eosinophils Absolute Auto 0.4 K/mm3 (0-0.3); Eosinophils Percent Auto 7.7 % (0-4.4); Hematocrit 33.3 % (37.0-47.0); Hemoglobin 10.8 g/dL (12.0-15.0); Lymphocytes Absolute Auto 1.28 K/mm3 (0.9-3.2); Lymphocytes Percent Auto 27.2 % (18.3-44.2); Mean Corpuscular HGB Conc 32.4 g/dl (32-36); Mean Corpuscular Hemoglobin 28.1 pg (26-34); Mean Corpuscular Volume 86.7 fl (80-100); Mean Platelet Volume 10.2 fl (7.4-10.4); Monocytes Absolute Auto 0.5 K/mm3 (0.1-0.6); Monocytes Percent Auto 9.8 % (2.6-8.5); Neutrophils Absolute Auto 2.5 K/mm3 (1.3-6.7); Platelet Count Result 265 k/mm3 (150-375); Red Blood Count 3.84 M/mm3 (4.2-5.4); Red Cell Distribution Width 14.3 % (11.5-14.5); White Blood Count 4.7 K/mm3 (4.5-10.0)
[2023-04-30 17:21] LABS: Partial Thromboplastin Time 29.5 SECONDS (22.3-36.8)
[2023-04-30 17:28] LABS: Alanine Aminotransferase 27 U/L (6-35); Albumin Level 4.4 g/dL (3.5-5.1); Alkaline Phosphatase 72 U/L (38-126); Anion Gap 4 mmol/L (8-16); Aspartate Amino Transferase 36 U/L (14-36); Bilirubin,Total 0.6 mg/dL (0.2-1.3); Blood Urea Nitrogen 19 mg/dL (7-17); Calcium 9.1 mg/dL (8.4-10.2); Carbon Dioxide 28 mmol/L (22-30); Chloride 101 mmol/L (98-107); Estimated CRCL calculation 65 ml/min; Estimated Glomerular Filt Rate > 60; Glucose 116 mg/dL (65-110); Lipase 41 U/L (23-300); Potassium 4.7 mmol/L (3.4-5.0); Sodium 133 mmol/L (137-145)
[2023-04-30 17:41] LABS: Troponin I < 0.012 ng/mL (0.000-0.034)
[2023-04-30 18:13] LABS: Glucose Point of Care 124 mg/dl (65-105)
[2023-04-30 18:13] LABS: Glucose Point of Care 162 mg/dl (65-105)
--- NOTE | 2023-04-30 19:48 | PC.NURSE ---
Report from FABIO Mcclure. Assumed care.
--- NOTE | 2023-04-30 20:00 | ED.CHESTPAIN ---
HPI - Chest Pain General Chief Complaint: Chest Pain Stated Complaint: nausea Time Seen by Provider: 04/30/23 18:51 Source: patient Mode of arrival: EMS Limitations: no limitations History of Present Illness HPI narrative: Patient is a 57 y/o female, with PMH of CAD, Type 1 DM, HTN, HLD, who presents to the ED via EMS with c/o multiple complaints. Patient reports she has been feeling increasingly short of breath over the last 4 days. She states it is intermittent and occurs at random times. Sometimes seems to be related to her losartan. Denies significant aggravation with exertion. She also reports having chest pain since this morning, across her anterior chest, also intermittent. She states when she is worrying about something, her chest pain worsens. She does complain of mild discomfort currently. Denies aggravation with exertion. Patient has history of CAD with previous stenting. She does state her pain feels somewhat similar to this. Patient's loan reviewer is Dr. Camarillo. Patient also reports having intermittent nausea, cough, congestion, and pain in her right thigh/right calf for the last several months. She states she was evaluated by her primary care doctor for this and had negative x-rays. Patient denies any recent fever, abdominal pain, swelling of lower extremities. Related Data Home Medications Medication Instructions Recorded Confirmed aspirin 81 mg tablet,delayed 81 mg PO DAILY 05/22/19 01/05/23 release (Adult Low Dose Aspirin) etanercept 50 mg/mL (1 mL) 50 mg subcut WEEKLY 05/22/19 01/05/23 subcutaneous syringe (Enbrel) hydrocodone 7.5 mg-acetaminophen 1 tablet PO Q8H PRN Pain 05/22/19 01/05/23 325 mg tablet docusate sodium 100 mg capsule 100 mg PO QPM 01/05/23 01/05/23 (Colace) insulin glargine 100 unit/mL (3 18 unit subcut HS 01/05/23 01/05/23 mL) subcutaneous pen (Lantus Solostar U-100 Insulin) Allergies Allergy/AdvReac Type Severity Reaction Status Date / Time amoxicillin Allergy Unknown Unknown Verified 04/30/23 18:51 celecoxib Allergy Unknown Unknown Verified 04/30/23 18:51 Review of Systems Review of Systems: CONSTITUTIONAL: Denies fever, chills, or sweats. EYES: Denies visual changes, redness, or discharge. ENT: See HPI. CARDIOVASCULAR: See HPI. RESPIRATORY: See HPI. GASTROINTESTINAL: See HPI. GENITOURINARY: Denies dysuria or hematuria. SKIN: Denies rash or itching. MUSCULOSKELETAL: See HPI. NEUROLOGIC: Denies headache, numbness, or weakness. All systems reviewed & are unremarkable except as noted in HPI and below PMFSH Past Medical History Medical History Anxiety Chronic anemia Coronary artery disease Depression Gastroesophageal reflux disease Gastroparesis Hyperlipidemia Hypertension Rheumatoid arthritis Sinusitis (07/2019) Type 1 diabetes mellitus Surgical History Surgical History History of bilateral cataract extraction History of breast biopsy History of cholecystectomy History of dilatation and curettage History of endometrial ablation Family History Family History Mother Family history of elevated blood lipids Patient's mother is in good health Hypertension Father Cerebrovascular accident Grandparent Acute myocardial infarction Cerebrovascular accident Sibling Throat cancer Social History Social History Social History: Surrogate medical decision maker: Erica Snider, sister. Code status: Full code. Smoking status: Never smoker Second hand tobacco smoke exposure: No Alcohol intake: never Substance use: never Lack of Transportation: No Lack of Food: Never True Current Housing: I Have Housing Concerned About Future Housing: No Difficulty Paying Gas/Electric Bills: No Difficulty Pay
[2023-04-30 20:18] LABS: Troponin I < 0.012 ng/mL (0.000-0.034)
[2023-04-30] MEDS: ACETAMINOPHEN 500 MG TABLET 1000 MG PO (20:21)
[2023-04-30 20:38] LABS: NT Pro B Type Natriuretic Pept 323 pg/mL (19.9-100)
[2023-04-30 20:40] LABS: D Dimer 0.42 ug/mL (<0.48)
[2023-04-30] MEDS: SODIUM CHLORIDE 0.9% IV 1,000 ML 999 ML IV CONT (20:49)
[2023-04-30 20:53] LABS: Glucose Point of Care 164 mg/dl (65-105)
[2023-04-30 21:13] LABS: Influenza A QL RT-PCR Negative (Negative); Influenza B QL RT-PCR Negative (Negative); SARS-CoV-2 RNA PCR Negative (Negative)
[2023-04-30 23:09] LABS: Appearance Urine Clear (Clear); Bilirubin Urine Negative (Negative); Blood Urine Negative (Negative); Color Urine Yellow (Yellow); Glucose Urine UA Negative (Negative); Ketones Urine Negative (Negative); Leukocyte Esterase Ur Negative LEU/UL (Negative); Nitrate Urine Negative (Negative); Protein Urine Negative (Negative); Specific Grav Ur 1.008 (1.001-1.035); Urobilinogen Urine 0.2 mg/dL (<2.0)
--- NOTE | 2023-04-30 23:15 | PC.NURSE ---
Pt ambulated with RN. Pt dizzy and swaying during ambulation. O2 and HR normal during ambulation. ERP notified.
[2023-04-30 23:36] LABS: Add Urine Microscopic? NO
[2023-04-30] MEDS: carvediloL 6.25 MG TABLET PO (23:46)
[2023-04-30] MEDS: LOSARTAN POTASSIUM 25 MG TABLET PO (23:46)
[2023-05-01] VITALS (14 sets, daily range): BP systolic 133–155; BP diastolic 43–66; PULSE 62–82; RESP 10–21; O2SAT 99–100
[2023-05-01] MEDS: MECLIZINE HCL 25 MG TABLET PO
--- NOTE | 2023-05-01 00:54 | PC.NURSE ---
Pt up to [facility]. Reports is still dizzy.
[2023-05-01 02:19] LABS: Glucose Point of Care 288 mg/dl (65-105)
[2023-05-01] MEDS: INSULIN ASPART (*BKC) 100 UNITS/ML 10 UNITS SUB-Q (03:14)
[2023-05-01 03:35] LABS: Glucose Point of Care 290 mg/dl (65-105)
== END 2023-05-01 03:21 | disposition home or self-care (01) ==
PROVIDERS: Emergency Medicine; Emergency Provider Physician Assistant; PCP Family Medicine
DX: J06.9 Acute upper respiratory infection, unspecified (principal); R07.89 Other chest pain; M79.604 Pain in right leg; R42 Dizziness and giddiness; R06.81 Apnea, not elsewhere classified; I25.10 Atherosclerotic heart disease of native coronary artery without angina pectoris; I10 Essential (primary) hypertension; E78.5 Hyperlipidemia, unspecified; E10.43 Type 1 diabetes mellitus with diabetic autonomic (poly)neuropathy; K31.84 Gastroparesis; M06.9 Rheumatoid arthritis, unspecified; K21.9 Gastro-esophageal reflux disease without esophagitis; D64.9 Anemia, unspecified; F41.9 Anxiety disorder, unspecified; F32.A Depression, unspecified; Z20.822 Contact with and (suspected) exposure to COVID-19; Z95.5 Presence of coronary angioplasty implant and graft; Z79.82 Long term (current) use of aspirin; Z79.4 Long term (current) use of insulin; Z79.891 Long term (current) use of opiate analgesic
CPT/HCPCS: 36415; 70450; 71046; 80053; 81003; 82948; 83690; 83880; 84484; 85025; 85380; 85610; 85730; 87636; 93005; 93971; 96360; 96361; 99284; A9270; J1815; J7030

== ENCOUNTER 2023-05-17 18:03 | Emergency (ER) | payer MEDICARE, SELFPAY ==
--- NOTE | ~2023-05-17 | XR_ITS ---
EXAMINATION: XR chest 2V Exam Date/Time: 05/17/2023 18:50 NETWORK PROJECT MANAGER HISTORY: cp, cough, weakness; Type 1 DM, HTN Comparison: 04/30/2023. RESULT: Lines, tubes, and devices: Coronary artery stent. Cholecystectomy clips. Lungs and pleura: Clear. Cardiomediastinal silhouette: Stable. Other: No acute osseous or upper abdominal finding. IMPRESSION: No acute cardiopulmonary process. Reviewed, dictated and finalized at location K. ORK PROJECT MANAGER
[2023-05-17 18:22] VITALS: BP 122/47; PULSE 80; RESP 20; TEMP 36.4; O2SAT 99
--- NOTE | 2023-05-17 18:28 | ECG_ITS ---
Measurements Intervals [place] Rate: 80 P: 33 SD: 156 QRS: 27 QRSD: 80 T: 31 QT: 360 QTc: 417 Interpretive Statements SINUS RHYTHM CANNOT RULE OUT SEPTAL INFARCT, AGE INDETERMINATE BASELINE ARTIFACT- I, III, AVL ABNORMAL ECG COMPARED TO ECG 04/30/2023 13:59:40 NO SIGNIFICANT CHANGES Electronically Signed On 05-17-2023 19:35:54 SWINE NUTRITIONIST by Ricardo Camarillo D.O.
[2023-05-17 19:16] LABS: Basophils Absolute Auto 0.1 K/mm3 (0.0-0.1); Basophils Percent Auto 1.1 % (0.2-1.2); Eosinophils Absolute Auto 0.3 K/mm3 (0-0.3); Eosinophils Percent Auto 7.5 % (0-4.4); Hematocrit 28.4 % (37.0-47.0); Immature Granulocyte Absolute 0.01 K/mm3 (0.00-0.031); Immature Granulocyte Percent A 0.2 % (0-0.5); Lymphocytes Absolute Auto 1.11 K/mm3 (0.9-3.2); Lymphocytes Percent Auto 25.3 % (18.3-44.2); Mean Corpuscular HGB Conc 31.7 g/dl (32-36); Mean Corpuscular Hemoglobin 27.8 pg (26-34); Mean Corpuscular Volume 87.7 fl (80-100); Mean Platelet Volume 10.5 fl (7.4-10.4); Monocytes Absolute Auto 0.5 K/mm3 (0.1-0.6); Monocytes Percent Auto 11.2 % (2.6-8.5); Neutrophils Absolute Auto 2.4 K/mm3 (1.3-6.7); Neutrophils Percent Auto 54.7 % (45.5-73.1); Platelet Count Result 225 k/mm3 (150-375); Red Blood Count 3.24 M/mm3 (4.2-5.4); Red Cell Distribution Width 14.6 % (11.5-14.5); White Blood Count 4.4 K/mm3 (4.5-10.0)
[2023-05-17 19:25] LABS: Alanine Aminotransferase 22 U/L (6-35); Albumin Level 3.8 g/dL (3.5-5.1); Alkaline Phosphatase 62 U/L (38-126); Anion Gap 6 mmol/L (8-16); Aspartate Amino Transferase 27 U/L (14-36); Bilirubin,Total 0.5 mg/dL (0.2-1.3); Blood Urea Nitrogen 29 mg/dL (7-17); Calcium 8.5 mg/dL (8.4-10.2); Carbon Dioxide 24 mmol/L (22-30); Chloride 101 mmol/L (98-107); Estimated CRCL calculation 58 ml/min; Estimated Glomerular Filt Rate > 60; Glucose 378 mg/dL (65-110); Lipase 42 U/L (23-300); Potassium 4.5 mmol/L (3.4-5.0); Sodium 131 mmol/L (137-145)
[2023-05-17 19:36] LABS: Prothrombin Time 13.5 Seconds (11.1-14.7)
[2023-05-17 19:37] LABS: Partial Thromboplastin Time 28.7 SECONDS (22.3-36.8); Troponin I < 0.012 ng/mL (0.000-0.034)
[2023-05-17 22:35] VITALS: BP 150/56; PULSE 87; RESP 15; O2SAT 99
[2023-05-17 23:08] LABS: Troponin I < 0.012 ng/mL (0.000-0.034)
--- NOTE | 2023-05-17 23:24 | ED.GENADULT ---
HPI - General Adult General Chief complaint: Chest Pain Stated complaint: cp Time Seen by Provider: 05/17/23 22:43 History of Present Illness HPI narrative: This is a 57-year-old female multiple medical problems presenting ED with chief complaint of chest pain. Patient states the pain started at 5:30 p.m. today while she was walking into her kitchen. He has an achy pain that radiates across her chest. Six out 10 intensity and constant. She relates this to previous MIs. No exacerbating alleviating symptoms. Patient describes chills and dyspnea x1 days. She says she is nauseous but no vomiting. Patient's fourdrinier machine tender is Dr. Camarillo. Patient was seen here on April 30 with an identical presentation and a negative workup. Related Data Home Medications Medication Instructions Recorded Confirmed aspirin 81 mg tablet,delayed 81 mg PO DAILY 05/22/19 01/05/23 release (Adult Low Dose Aspirin) etanercept 50 mg/mL (1 mL) 50 mg subcut WEEKLY 05/22/19 01/05/23 subcutaneous syringe (Enbrel) hydrocodone 7.5 mg-acetaminophen 1 tablet PO Q8H PRN Pain 05/22/19 01/05/23 325 mg tablet docusate sodium 100 mg capsule 100 mg PO QPM 01/05/23 01/05/23 (Colace) insulin glargine 100 unit/mL (3 18 unit subcut HS 01/05/23 01/05/23 mL) subcutaneous pen (Lantus Solostar U-100 Insulin) Allergies Allergy/AdvReac Type Severity Reaction Status Date / Time amoxicillin Allergy Unknown Unknown Verified 04/30/23 18:51 celecoxib Allergy Unknown Unknown Verified 04/30/23 18:51 [facility] Past Medical History Medical History Anxiety Chronic anemia Coronary artery disease Depression Gastroesophageal reflux disease Gastroparesis Hyperlipidemia Hypertension Rheumatoid arthritis Sinusitis (07/2019) Type 1 diabetes mellitus Surgical History Surgical History History of bilateral cataract extraction History of breast biopsy History of cholecystectomy History of dilatation and curettage History of endometrial ablation Family History Family History Mother Family history of elevated blood lipids Patient's mother is in good health Hypertension Father Cerebrovascular accident Grandparent Acute myocardial infarction Cerebrovascular accident Sibling Throat cancer Social History Social History Social History: Surrogate medical decision maker: Erica Snider, sister. Code status: Full code. Smoking status: Never smoker Second hand tobacco smoke exposure: No Alcohol intake: never Substance use: never Lack of Transportation: No Lack of Food: Never True Current Housing: I Have Housing Concerned About Future Housing: No Difficulty Paying Gas/Electric Bills: No Difficulty Paying for Meds: No Currently Unemployed: No Education: Trade/Vocational Certificate Difficulty w/ Childcare or Family Care: No Living arrangements: with family Additional living arrangements comments: Lives with parents. Spiritual care concerns: No Exam Narrative: APPEARANCE: patient appears anxious Head: atraumatic. EYES: EOMI, NOSE: Atraumatic NECK: Trachea midline RESPIRATORY: No increased rate of breathing, clear to auscultation CARDIOVASCULAR: RRR, no peripheral edema ABDOMINAL: Non-distended MUSCULOSKELETAl: No obvious deformities NEURO: Alert. Moving 4/4 extremities SKIN:: Warm, dry. Normal color PSYCHIATRIC: anxious Course Vital Signs Vital signs: Vital Signs Temperature 97.5 F L 05/17/23 18:22 Pulse Rate 80 05/17/23 18:22 Respiratory Rate 20 05/17/23 18:22 Blood Pressure 122/47 L 05/17/23 18:22 Pulse Oximetry 99 05/17/23 18:22 Oxygen Delivery Room Air 05/17/23 18:22 Temperature 97.5 F L 05/17/23 18:22 Pulse Rate 73 05/18/23
[2023-05-17 23:31] LABS: NT Pro B Type Natriuretic Pept 177 pg/mL (19.9-100)
[2023-05-17] MEDS: HYDROcodone/acetaminophen (*CRX) 10-325 MG TABLET 1 TAB PO (23:36)
[2023-05-17] MEDS: ONDANSETRON INJ 4 MG/2 ML VIAL IV PUSH (23:36)
[2023-05-17] MEDS: NITROGLYCERIN SL 0.4 MG TABLET SUBLINGUAL (23:37)
[2023-05-17 23:39] VITALS: BP 162/62; PULSE 77; PULSE 85; RESP 21; O2SAT 99
--- NOTE | 2023-05-18 00:11 | PC.NURSE ---
RUTH RN to give 1mg ativan IVP per ERP Zych
[2023-05-18 00:59] VITALS: BP 121/59; PULSE 73; RESP 14; O2SAT 99
[2023-05-18 02:10] VITALS: BP 142/74; PULSE 80; RESP 19; O2SAT 98
== END 2023-05-18 02:10 | disposition home or self-care (01) ==
LOC: ANHED 05-18 01:45
PROVIDERS: Student in an Organized Health Care Education/Training Program; Emergency Provider Emergency Medicine; PCP Family Medicine
DX: R07.9 Chest pain, unspecified (principal); R06.00 Dyspnea, unspecified; I25.10 Atherosclerotic heart disease of native coronary artery without angina pectoris; I10 Essential (primary) hypertension; E10.43 Type 1 diabetes mellitus with diabetic autonomic (poly)neuropathy; K31.84 Gastroparesis; M06.9 Rheumatoid arthritis, unspecified; D64.9 Anemia, unspecified; K21.9 Gastro-esophageal reflux disease without esophagitis; F32.A Depression, unspecified; F41.9 Anxiety disorder, unspecified; Z95.5 Presence of coronary angioplasty implant and graft; Z98.42 Cataract extraction status, left eye; Z98.41 Cataract extraction status, right eye; Z90.49 Acquired absence of other specified parts of digestive tract; Z79.4 Long term (current) use of insulin; Z79.82 Long term (current) use of aspirin
CPT/HCPCS: 36415; 71046; 80053; 83690; 83880; 84484; 85025; 85380; 85610; 85730; 93005; 96374; 99284; A9270; J2060; J2405

== ENCOUNTER 2023-05-24 12:31 | Outpatient (CLI) | payer MEDICARE, SELFPAY ==
[2023-05-24 18:50] LABS: Iron 62 ug/dL (37-170)
[2023-05-24 19:06] LABS: Percent Iron Saturation 18 % (20-50)
[2023-05-24 19:29] LABS: Ferritin 9.15 ng/mL (11.1-264)
[2023-05-24 19:40] LABS: Magnesium 2.1 mg/dL (1.6-2.3)
[2023-05-24 19:41] LABS: Hematocrit 32.6 % (37.0-47.0); Hemoglobin 10.2 g/dL (12.0-15.0); Mean Corpuscular HGB Conc 31.3 g/dl (32-36); Mean Corpuscular Volume 89.6 fl (80-100); Mean Platelet Volume 10.9 fl (7.4-10.4); Platelet Count Result 255 k/mm3 (150-375); Red Blood Count 3.64 M/mm3 (4.2-5.4); Red Cell Distribution Width 14.9 % (11.5-14.5)
[2023-05-24 20:56] LABS: Hemoglobin A1C 7.6 % (<5.7)
== END 2023-05-24 12:32 | disposition home or self-care (01) ==
PROVIDERS: PCP Family Medicine; Visit Provider Nurse Practitioner Adult Health
DX: D64.9 Anemia, unspecified (principal); E10.9 Type 1 diabetes mellitus without complications
CPT/HCPCS: 36415; 82728; 83036; 83540; 83550; 83735; 85027

== ENCOUNTER 2023-08-04 16:07 | Outpatient (CLI) | payer MEDICARE, SELFPAY ==
[2023-08-04 16:19] LABS: Basophils Percent Auto 0.6 % (0.2-1.2); Eosinophils Absolute Auto 0.3 K/mm3 (0-0.3); Hematocrit 31.6 % (37.0-47.0); Hemoglobin 10.3 g/dL (12.0-15.0); Immature Granulocyte Absolute 0.01 K/mm3 (0.00-0.031); Immature Granulocyte Percent A 0.2 % (0-0.5); Lymphocytes Absolute Auto 1.76 K/mm3 (0.9-3.2); Lymphocytes Percent Auto 27.2 % (18.3-44.2); Mean Corpuscular HGB Conc 32.6 g/dl (32-36); Mean Corpuscular Hemoglobin 29.2 pg (26-34); Mean Corpuscular Volume 89.5 fl (80-100); Mean Platelet Volume 9.7 fl (7.4-10.4); Monocytes Absolute Auto 0.7 K/mm3 (0.1-0.6); Monocytes Percent Auto 10.2 % (2.6-8.5); Neutrophils Absolute Auto 3.7 K/mm3 (1.3-6.7); Neutrophils Percent Auto 56.8 % (45.5-73.1); Platelet Count Result 256 k/mm3 (150-375); Red Blood Count 3.53 M/mm3 (4.2-5.4); Red Cell Distribution Width 13.9 % (11.5-14.5); White Blood Count 6.5 K/mm3 (4.5-10.0)
[2023-08-04 16:54] LABS: Iron 59 ug/dL (37-170)
[2023-08-04 17:02] LABS: Alanine Aminotransferase 31 U/L (6-35); Alkaline Phosphatase 70 U/L (38-126); Anion Gap 6 mmol/L (8-16); Aspartate Amino Transferase 46 U/L (14-36); Bilirubin,Total 0.7 mg/dL (0.2-1.3); Blood Urea Nitrogen 19 mg/dL (7-17); Calcium 8.8 mg/dL (8.4-10.2); Carbon Dioxide 28 mmol/L (22-30); Chloride 97 mmol/L (98-107); Estimated Glomerular Filt Rate > 60; Glucose 221 mg/dL (65-110); Lactate Dehydrogenase 238 U/L (120-246); Potassium 4.2 mmol/L (3.4-5.0); Sodium 131 mmol/L (137-145)
[2023-08-04 17:04] LABS: Percent Iron Saturation 17 % (20-50)
[2023-08-04 17:31] LABS: Ferritin 9.57 ng/mL (11.1-264)
[2023-08-04 20:40] LABS: Folic Acid 11.4 ng/mL (2.76->20)
[2023-08-06 23:46] LABS: Methylmalonic Acid 355 nmol/L (87-318)
[2023-08-11 12:16] LABS: Soluble Transferrin Receptor 1.79 mg/L (0.76-1.76)
== END 2023-08-04 16:08 | disposition home or self-care (01) ==
LOC: ANHLAB 16:08
PROVIDERS: PCP Nurse Practitioner Adult Health; Visit Provider Internal Medicine Hematology & Oncology
DX: D64.9 Anemia, unspecified (principal)
CPT/HCPCS: 36415; 80053; 82607; 82728; 82746; 83540; 83550; 83615; 83921; 84238; 85025

== ENCOUNTER 2023-10-25 14:33 | Outpatient (CLI) | payer MEDICARE, SELFPAY ==
[2023-10-25 20:00] LABS: Alanine Aminotransferase 22 U/L (6-35); Albumin Level 4.2 g/dL (3.5-5.1); Alkaline Phosphatase 73 U/L (38-126); Anion Gap 5 mmol/L (4-12); Aspartate Amino Transferase 44 U/L (14-36); Bilirubin,Total 0.8 mg/dL (0.2-1.3); Blood Urea Nitrogen 26 mg/dL (7-17); Calcium 9.1 mg/dL (8.4-10.2); Carbon Dioxide 25 mmol/L (22-30); Chloride 102 mmol/L (98-107); Estimated Glomerular Filt Rate 57; Glucose 213 mg/dL (65-110); Potassium 4.5 mmol/L (3.4-5.0); Sodium 132 mmol/L (137-145)
[2023-10-25 21:31] LABS: Iron 79 ug/dL (37-170)
[2023-10-25 21:43] LABS: Percent Iron Saturation 33 % (20-50)
[2023-10-25 23:15] LABS: Hemoglobin A1C 6.7 % (<5.7)
== END 2023-10-25 14:34 | disposition home or self-care (01) ==
PROVIDERS: PCP Family Medicine; Visit Provider Internal Medicine Hematology & Oncology
DX: E11.9 Type 2 diabetes mellitus without complications (principal); D64.9 Anemia, unspecified; M25.532 Pain in left wrist; E22.2 Syndrome of inappropriate secretion of antidiuretic hormone
CPT/HCPCS: 36415; 80053; 82728; 83036; 83540; 83550

== ENCOUNTER 2023-12-30 16:00 | Outpatient (CLI) | payer MEDICARE, SELFPAY ==
[2023-12-30 19:54] LABS: Hematocrit 30.3 % (37.0-47.0); Hemoglobin 9.8 g/dL (12.0-15.0); Mean Corpuscular HGB Conc 32.3 g/dl (32-36); Mean Corpuscular Volume 95.9 fl (80-100); Mean Platelet Volume 11.6 fl (7.4-10.4); Platelet Count Result 205 k/mm3 (150-375); Red Blood Count 3.16 M/mm3 (4.2-5.4); Red Cell Distribution Width 14.1 % (11.5-14.5); White Blood Count 4.3 K/mm3 (4.5-10.0)
[2023-12-30 20:01] LABS: Alanine Aminotransferase 25 U/L (6-35); Albumin Level 4.3 g/dL (3.5-5.1); Alkaline Phosphatase 82 U/L (38-126); Anion Gap 7 mmol/L (4-12); Aspartate Amino Transferase 45 U/L (14-36); Bilirubin,Total 0.7 mg/dL (0.2-1.3); Blood Urea Nitrogen 23 mg/dL (7-17); Carbon Dioxide 25 mmol/L (22-30); Chloride 103 mmol/L (98-107); Estimated Glomerular Filt Rate > 60; Glucose 143 mg/dL (65-110); Potassium 4.6 mmol/L (3.4-5.0); Sodium 135 mmol/L (137-145)
[2023-12-30 20:03] LABS: Hemoglobin A1C 6.9 % (<5.7)
[2023-12-30 20:14] LABS: Free T4 Free Thyroxine 0.89 ng/mL (0.78-2.19); Vitamin D 25 Hydroxy 24.8 ng/mL
[2023-12-30 20:19] LABS: Microalbumin Urine Random 15.1 mg/L (0-16.7)
[2023-12-30 20:20] LABS: Creatinine Urine 102.7 mg/dL; MALB Creatinine Ratio 14.7 mg/g (0-30)
== END 2023-12-30 16:01 | disposition home or self-care (01) ==
PROVIDERS: PCP Family Medicine; Visit Provider Nurse Practitioner Family
DX: E11.9 Type 2 diabetes mellitus without complications (principal); E03.9 Hypothyroidism, unspecified; E55.9 Vitamin D deficiency, unspecified; E78.5 Hyperlipidemia, unspecified; I10 Essential (primary) hypertension
CPT/HCPCS: 36415; 80053; 82043; 82306; 82607; 83036; 84439; 84443; 85027

== ENCOUNTER 2025-05-23 15:27 | Outpatient (CLI) | payer MEDICARE, SELFPAY ==
--- OUTSIDE RECORDS SUMMARY | 2025-05-23 16:08 | XMS_ITS | Encounter Summary ---
Author Organization [facility] Health Address [address] [place] [address] Care Team Providers Care Rn Surgery Icu Name Role Phone Unavailable Primary Care Provider Unavailabl e Encounter Details Date Type Department Care Team (Late st Contact Info) Description 01/01/2020 Lab Requisition [facility] [address] [place] [address] MD Social History Tobacco Use Types Packs/Day Years Used Date Smoking Tobacco: Never Assessed Comments Unknown Sex and Gender Information Value Date Recorded Sex Assigned at Not on file Legal Sex Female 2:12 PM CDT Gender Identity Not on file Sexual Orientation Not on file documented as of this encounter Plan of Treatment Not on file documented as of this encounter Procedures Procedure Name Priority Date/Time Associated Diagnosis Comments SARS-COV-2 (COVID-19) IN HOUSE Routine 12/31/2019 1:40 PM CDT documented in this encounter Results * SARS-COV-2 (COVID-19) IN HOUSE (12/31/2019 1:40 PM CDT) COVID-19 PCR Not detected Not detected, Invalid 01/01/2020 9:38 PM CDT [facility] Microbiology SPECIMEN FROM NASOPHARYNGEAL STRUCTURE / Unknown Collection / Unknown 12/31/2019 1:40 PM CDT 01/01/2020 10:39 AM CDT Narrative [facility] - 01/01/2020 9:38 PM CDT This Real Time RT-PCR assay was developed and its performance characteristics determined by [facility]. This test has been authorized by the Food and Drug administration (FDA)under an Emergency Use Authorization (EUA). This test has been validated in accordance with the FDA's guidance document Policy for Diagnostic Testing in Laboratories Certified to perform High Complexity Testing under CLIA prior to Emergency Use Authorization for Coronavirus Disease-2019 during the Public Health Emergency issued on September 09, 2019. FDA independent review of this validation is pending. This test is only authorized for the duration of time the declaration that circumstances exist justifying the authorization of emergency use of in vitro diagnostic tests for detection of SARS-CoV-2 virus and/or diagnosis of COVID-19 infection under section 564(b)(1) of the Act, 21 U.S.C 360bbb-3 (b)(1), unless the authorization is terminated or revoked sooner. us Jose St MD LAB - MICROBIOLOGY ORDERABL ES Final Result [facility] [address] [place] [address], [facility] [phone] documented in this encounter Visit Diagnoses Not on filedocumented in this encounter Additional Health Concerns Infection Onset Date Last Indicated Resolved Time COVID-19 Under Investigation 12/31/2019 12/31/2019 01/01/2020 9:38 PM CDT documented as of this encounter
--- OUTSIDE RECORDS SUMMARY | 2025-05-23 16:08 | XMS_ITS | Clinical Summary ---
Author Organization [facility] Address [address] [place] [address] Phone Care Team Providers Care Wire Preparation Machine Tender Name Role Phone Gerber Dorsey MD Primary Care Provider [phone] Mery Chambers MD Unavailable Allergies Active Allergy Reactions Criticality Noted Date Comments Amoxicillin Unknown 01/22/2012 Celecoxib Other (see Comments) Medium 10/07/2017 CHEST PAIN Medications atorvastatin (LIPITOR) 20 MG TabletIndicati ons:HS Take 20 mg by mouth nightly. Indications: HS 09/18/19 18 Active DEXILANT 60 MG CAPSULE DELAYED RELEASE Take 60 mg by mouth every morning. 09/20/19 18 Active gabapentin (NEURONTIN) 600 MG TabletIndicati ons:Fibromyalg ia Syndrome,HS Take 600 mg by mouth nightly. Indications: Fibromyalgia Syndrome, HS 10/02/19 18 Active HYDROcodone-ac etaminophen (NORCO) 7.5-325 MG Tablet 1 Tab every 6 hours as needed for Moderate or more severe pain. 06/23/20 17 Active BD PEN NEEDLE SG U/F 32G X 4 MM Misc 09/18/19 18 Active zolpidem (AMBIEN) 5 MG Tablet Take 5 mg by mouth nightly as needed. 06/24/20 17 Active nitroGLYCERIN (NITROSTAT) 0.4 MG SL Tablet 1 Tab by Sublingual route every 5 minutes as needed for Chest pain for up to 10 doses. 10 Tab 02/23/20 18 Active carvedilol (COREG) 25 MG Tablet Take 1 Tab by mouth 2 times daily. 60 Tab 02/23/20 18 Active Additional Information Patient taking differently: 6.25 mgOral 2 TIMES DAILY, Reported on 04/11/2019 LORazepam (ATIVAN) 1 MG Tablet Take 1 Tab by mouth every 8 hours as needed for Anxiety. 10 Tab 02/23/20 18 Active Etanercept 50 MG/ML Solution Prefilled Syringe by Subcutaneous route once a week. Wednesday Active torsemide (DEMADEX) 5 MG TabletIndicati ons:Patient states she takes only 5mg Take 5 mg by mouth daily. noon Indications: Patient states she takes only 5mg 07/24/19 Active ONETOUCH DELICA LANCETS 33G Misc 1 Lancet by Does not apply route 4 times daily. 400 Lancet 3 07/25/19 Active aspirin EC 81 MG Tablet Delayed Response Take 81 mg by mouth every morning. Active levothyroxine (SYNTHROID) 50 MCG Tablet Take 50 mcg by mouth every morning. Active Insulin Lispro (HUMALOG KWIKPEN SC) 10 Units by Subcutaneous route every morning (before breakfast). 10/07/19 Active Insulin Lispro (HUMALOG KWIKPEN SC) 12 Units by Subcutaneous route daily (before lunch). 10/07/19 Active Insulin Lispro (HUMALOG KWIKPEN SC) 12 Units by Subcutaneous route daily (before dinner). 10/07/19 Active Insulin Lispro (HUMALOG KWIKPEN SC)Indications :Correction 1:30 if >140 mg/dl. Up to 10 units per meal for BS up to 400 by Subcutaneous route 3 times daily (with meals). Per patient uses additonal units for readings greater than 140: for Indications: Correction 1:30 if >140 mg/dl. Up to 10 units per meal for BS up to 400 10/06/19 Active quinapril (ACCUPRIL) 20 MG Tablet Take 20 mg by mouth every evening. Active ticagrelor (BRILINTA) 90 MG Tablet Take 1 Tab by mouth 2 times daily. 180 Tab 3 10/08/19 Active LANTUS SOLOSTAR 100 UNIT/ML Solution Pen-injector 26 Units by Subcutaneous route nightly. 15 mL 3 10/30/19 19 Active Additional Information Patient taking differently: 18 UnitsSubcutaneous NIGHTLY,Indications: REPORTED TAKING 18 UNITS AT BEDTIME ON 05/18/23, Reported on 05/18/2023 otherIndicatio ns:Stool softner 200 mg by Other route every evening. Indications: Stool softner Active citalopram (CELEXA) 20 MG Tablet Take 20 mg by mouth daily. noon Active Diclofenac Sodium 1 % Cream by Transdermal route as needed. To left shoulder Active B Gqocvqb-I-Pqhi in-E-Min-FA (DIALYVITE 5000) 5 MG Tablet Take by mouth. Activ e dicyclomine (BENTYL) 10 MG Capsule TAKE ONE CAPSULE BY MOUTH THREE TIMES DAILY 90 Capsule 3 12/12/19 21 Active losartan (COZAAR) 25 MG Tablet Take 25 mg by mouth every evening. 03/24/20 23 Active Active Problems Problem Noted Date Diagnosed Date Chronic diastolic CHF (congestive heart failure) 10/07/2018 Coronary artery disease of n ative heart with stable angina pectoris 10/05/2018 Headache 10/05/2018 Type 1 diabetes mellitus with diabetic polyneuro vianca 02/18/2018 Hyponatremia 02/17/2018 Coronary artery disease 02/17/2018 Normocytic normochromic anemia 02/17/2018 RA (rheumatoid arthritis) 02/17/2018 CKD (chronic kidney disease) stage 3, GFR 30-59 ml/min 02/17/2018 Diabetic polyneuropathy asso ciated with type 2 diabetes mellitus 10/07/2017 Diabetic vasculopathy 10/07/2017 Equinus contracture of left ankle 10/07/2017 Equinus contracture of right ankle 10/07/2017 GERD (gastroesophageal reflux disease) Hypothyroidism Depression Hypertension Hyperlipidemia Family History Medical History Relation Name Comments No Known Problems Brother Prostate Cancer Father Stroke Father No Known Problems Maternal Grandfather No Known Problems Maternal Grandmother Cervical Cancer Mother High Cholesterol Mother Hypertension Mother No Known Problems Other No Known Problems Paternal Grandfather No Known Problems Paternal Grandmother Rheumatoid Arthritis Sister Relation Name Status Comments Brother Father Maternal Grandfather Maternal Grandmother Mother Alive Other Paternal Grandfather Paternal Grandmother Sister Alive Social History Tobacco Use Types Packs/Day Years Used Date Smoking Tobacco: Never Smokeless Tobacco: Never Alcohol Use Standard Drinks/Week Comments No 0 (1 standard drink = 0.6 oz pur e alcohol) Sexually Active Control Partners Comments Not Currently Comments No Sex and Gender Information Value Date Recorded Sex Assigned at Not on file Legal Sex Female 10:50 PM CDT Gender Identity Not on file Sexual Orientation Not on file Occupation Industry Job Start Date Job End Date disabled Not on file Not on file Not on file Last Filed Vital Signs Vital Sign Reading Time Taken Comments Blood Pressure 142/58 04/15/2023 3:12 PM CDT Pulse 75 04/15/2023 3:12 PM CDT Temperature 37.1 C (98.7 F) 04/15/2023 3:12 PM CDT Respiratory Rate 14 04/15/2023 3:12 PM CDT Oxygen Saturation 98% 04/15/2023 3:12 PM CDT Inhaled Oxygen Concentration - - Weight 78.9 kg (174 lb) 05/18/2023 3:00 PM ENDOCRINOLOGY TEACHER Height 171.5 cm (5' 7.5) 05/18/2023 3:00 PM ENDOCRINOLOGY TEACHER Body Mass Index 26.85 05/18/2023 3:00 PM ENDOCRINOLOGY TEACHER Plan of Treatment Health Maintenance Due Date Last Done Comments Diabetes: Eye Exam 1964 Hepatitis C Virus (HCV) Screening 1964 Mammogram 1964 TdaP Immunization 1964 Pneumococcal Immunization (50+ years) (1 of 2 - PCV) 1983 Zoster Immunization (1 of 2) 1983 Pap Smear 1985 Cervical Cancer Screening (CCS) 1994 HPV/Cotest 1994 Cologuard 2009 Immunochemical Fecal Occult Blood 2009 Medicare Initial AWV [id number] 03/12/2011 Respiratory Syncytial Virus (RSV) Immunization (Adult) (1 - Risk 50-74 years 1-dose series) 2014 Diabetes: Foot Exam 06/09/2017 06/09/2016 Diabetes: Hemoglobin A1c 04/08/2019 019, 07/25/2018, 03/17/2018, Additional history exists Diabetes: Nephropathy Screening 03/04/2023 03/04/2022, 10/07/2018, 10/06/2018, Additional history exists Influenza Immunization (#1) 2025 06/11/2022 SARS-COV-2 Immunization ( season) 2025 06/16/2021, 10/15/2020, 09/23/2020 Colonoscopy 02/26/2026 02/27/2016 Colorectal Cancer Screening 02/26/2026 Hepatitis B Immunization Aged Out No longer eligible based on patient's age to complete this topic Human Papillomavirus (HPV) Immunization Aged Out No longer eligible based on patient's age to complete this topic Meningococcal Immunization (ACWY) Aged Out No longer eligible based on patient's age to complete this topic Rotavirus Immunization Aged Out No lo nger eligible based on patient's age to complete this topic Medical Devices Implanted Type Area Log Raft Worker Device Identifier Shelf Expiration Date Model / Serial / Lot Stent Coronary Yohana Xience Everolimus Eluting [id number] - [id number] Implanted:Qty: 1 on 10/06/2018 [facility] IMPLANT N/A: Coronary [employer] 02/21/2019 [id number] / / [id number] Device Clsr 70cm 6fr Angio-Seal Vip .035in Vasc Collagen Valuelink Gw Insertion Shth J Consultant In Ergonomics And Safety - [id number] Implanted:Qty: 1 on 10/06/2018 by [facility] IMPLANT Right: [email or web address] 06/10/2019 [id number] / / [id number] Procedures Procedure Name Priority Date/Time Associated Diagnosis Comments CMP (COMPREHENSIVE METABOLIC PANEL) STAT 03/04/2022 6:00 PM CDT HEMOGLOBIN A1C W/ ESTIMATED GLUCOSE Routine 10/06/2018 4:48 AM CDT AMB REFERRAL TO PODIATRY Routine 06/09/2016 HM COLONOSCOPY Routine 02/27/2016 from Last 3 Months or Most Recently Relevant to Health Maintenance Results * (ABNORMAL) CMP (Comprehensive Metabolic Panel) (03/04/2022 6:00 PM CDT) SODIUM 137 136 - 144 mmol/L 03/04/2022 6:57 PM CDT [facility] POTASSIUM 4.5 3.5 - 5.1 mmol/L 03/04/2022 6:57 [facility] CHLORIDE 102 100 - 110 mmol/L 03/04/2022 6:57 PM [facility] CO2, VENOUS 23 22 - 32 mmol/L 03/04/2022 6:57 PM [facility] ANION GAP 16.5 8.0 - 20.0 mmol/L 03/04/2022 6:57 PM [facility] GLUCOSE 260(H) 70 - 99 mg/dL 03/04/2022 6:57 PM [facility] BUN 22(H) 6 - 20 mg/dL 03/04/2022 6:57 PM [facility] CREATININE, BLOOD 1.07 0.60 - 1.10 mg/dL 03/04/2022 6:57 PM [facility] BUN/CREATININE RATIO 21(H) 12 - 20 ratio 03/04/2022 6:57 PM [facility] TOTAL PROTEIN 6.7 6.0 - 8.3 g/dL 03/04/2022 6:57 PM [facility] ALBUMIN 3.9 3.5 - 5.2 g/dL 03/04/2022 6:57 PM [facility] Comment: The colormetric methods used for the determination of Albumin may lead to falsely elevated test results in patients suffering from renal failure or insufficiency due to interference with other proteins. A/G RATIO 1.4 1.0 - 2.0 03/04/2022 6:57 PM [facility] CALCIUM 9.1 8.9 - 10.3 mg/dL 03/04/2022 6:57 PM [facility] T BILI 0.3 <=1.2 mg/dL 03/04/2022 6:57 PM [facility] SGOT (AST) 16 <=32 U/L 03/04/2022 6:57 PM [facility] SGPT (ALT) 16 <=41 U/L 03/04/2022 6:57 PM [facility] ALKALINE PHOSPHATASE 75 35 - 105 U/L 03/04/2022 6:57 PM CDT [facility] GFR, ESTIMATED >60 >=60 03/04/2022 6:57 PM CDT [facility] Comment: Creatinine Clearance is the preferred criteria for selecting drug dose adjustments in renally impaired patients. The GFR is provided as additional pertinent clinical information. GFR is reported in mL/min/1.73 sq m. Calculation based on the Chronic Kidney Disease Epidemiology Collaboration (CKD- EPI) equation refit without adjustment for race. GFR, EST. >60 >=60 022 6:57 PM CDT [facility] GFR, EST. NONAFRICAN 53(L) >=60 03/04/2022 6:57 PM CDT [facility] Blood Venous Catheter (IV) / Unknown 03/04/2022 6:00 PM CDT 03/04/2022 6:30 PM CDT Juan Carlos Giron MD CHEMISTRY ORDERABLES Tish l Result [facility] [address] [place] [address] * (ABNORMAL) Hemoglobin A1C w/ Estimated Glucose (10/06/2018 4:48 AM CDT) HGB-A1C 7.8(H) 4.0 - 6.0 % 10/06/2018 4:17 PM CDT [facility] Est Average Glucose 177.2 mg/dL 10/06/2018 4:17 PM CDT [facility] Blood specimen (specimen) Butterfly Puncture / Unknown 10/06/2018 4:48 AM CDT 10/06/2018 3:59 PM CDT Narrative [facility] - 10/06/2018 4:17 PM CDT HEMOGLOBIN A1C: DIABETIC PATIENTS: WELL-CONTROLLED: 6.2 - 7.0 INTERMEDIATE WELL-CONTROLLED: 7.0 - 9.0 POORLY-CONTROLLED: >9.0 us Mario Pham MD CHEMISTRY ORDERABLES Fin al Result [facility] [address] [place] [address] * AMB REFERRAL TO PODIATRY (06/09/2016) us Not On File Provider OUTPATIENT REFERRALS Final Result * HM COLONOSCOPY (02/27/2016) us Not On File Provider PROCEDURE/MINOR SURGICAL OR DERABLES Final Result from Last 3 Months or Most Recently Relevant to Health Maintenance [facility] Directives Documents on File Type Date Recorded Patient Capsule Filling Machine Operator Expl anation Power of Builder Beam for Health Care 01/04/2020 10:27 AM POA * Full Code (Latest Code Status on File) Date Activated Date Inactivated Comments 10/05/2018 11:18 PM 10/07/2018 7:02 PM CPR-Full Tr eatment: FULL ARREST: Attempt Resuscitation/CPR wit intubation and mechanical ventilation. PRE-ARREST: Use entire range of life support measures to stabilize the patient. * Full Code Date Activated Date Inactivated Comments 02/18/2018 1:24 AM 02/22/2018 8:36 PM CPR-Full [place] atment: FULL ARREST: Attempt Resuscitation/CPR wit intubation and mechanical ventilation. PRE-ARREST: Use entire range of life support measures to stabilize the patient. Care Teams Wire Preparation Machine Tender Relationship Specialty Start Date End Date Gerber Dorsey MD PCP - General Family Medicine 03/04/22 Mery Chambers MD [address] [place] [address] Consulting Physician Gastroenterology 04/15/23
--- OUTSIDE RECORDS SUMMARY | 2025-05-23 16:08 | XMS_ITS | Clinical Summary ---
Author Organization [facility] Facility Address [address] [place] [address] Care Team Providers Care Atg Architect Name Role Phone Jerome Oakley Primary Care Provider [phone]- [phone] Social History Tobacco Use Types Packs/Day Years Used Date Smoking Tobacco: Never Alcohol Use Standard Drinks/Week Comments No 0 (1 standard drink = 0.6 oz pur e alcohol) Comments Unknown Sex and Gender Information Value Date Recorded Sex Assigned at Not on file Legal Sex Female 2:50 PM EDT Gender Identity Not on file Sexual Orientation Not on file Last Filed Vital Signs Vital Sign Reading Time Taken Comments Blood Pressure 142/60 01/23/2020 12:00 PM CDT Pulse 81 01/23/2020 12:00 PM CDT Temperature 36.6 C (97.9 F) 01/23/2020 12:00 PM CDT Respiratory Rate 18 01/23/2020 12:00 PM CDT Oxygen Saturation 98% 01/23/2020 12:00 PM CDT Inhaled Oxygen Concentration - - Weight 85.7 kg (189 lb) 01/23/2020 12:00 PM CDT Height 170.2 cm (5' 7) 01/23/2020 12:00 PM CDT Body Mass Index 29.6 01/23/2020 12:00 PM CDT Plan of Treatment Health Maintenance Due Date Last Done Comments Breast Cancer Screening 1964 Pneumococcal Vaccine: 50+ Ye ars (1 of 2 - PCV) 1983 Colorectal Cancer Screening: Annual FOBT 2013 Colorectal Cancer Screening: Colonoscopy 2013 Colorectal Cancer Screening: Sigmoidoscopy 2013 Diabetes: Hemoglobin A1C 03/10/2021 Diabetes: Ophthalmology Exam 03/10/2021 Diabetes: Pedal Pulse Checked 03/10/2021 Diabetes: Sensory Foot Exam 03/10/2021 Diabetes: Visual Foot Exam 03/10/2021 Influenza Vaccine (#1) 2025 Hepatitis B Vaccine Aged Out No longe r eligible based on patient's age to complete this topic Insurance Medicare [facility] Commercial Care Teams Atg Architect Relationship Specialty Start Date End Date Jerome Oakley DO [address] [facility] [address] [place] [address] PCP - General Family Medicine 04/20/22
--- OUTSIDE RECORDS SUMMARY | 2025-05-23 16:08 | XMS_ITS | Clinical Summary ---
Author Organization [facility] Address [address] [place] [address] Care Team Providers Care Equipment Operator Intermodal Yard Name Role Phone Unavailable Primary Care Provider Unavailabl e Source Comments [facility],non-owned Affiliates and Associated Physician Practices is amultiple site organization consisting of ambulatory clinics and hospital sitesin [place], [place], [place] and [place]. This disclosure is being madepursuant to the Care Everywhere program and may not contain all information available regarding this patient. Last updated 18.[facility] Social History Tobacco Use Types Packs/Day Years Used Date Smoking Tobacco: Never Assessed Comments Unknown Sex and Gender Information Value Date Recorded Sex Assigned at Not on file Legal Sex Female 2:12 PM CDT Gender Identity Not on file Sexual Orientation Not on file Plan of Treatment Health Maintenance Due Date Last Done Comments COLOGUARD (AGES 45-75) - COL ON CA SCREENING 1964 COLON MONITORING 1964 COLONOSCOPY - COLON CA SCREENING 1964 CT COLONOGRAPHY - COLON CA SCREENING 1964 Colorectal Cancer Screening 1964 FIT - COLON CA SCREENING 1964 FLEX SIG - COLON CA SCREENING 1964 LIPID TESTING 1964 MAMMOGRAM 1964 MEDICARE AWV 12 MONTHS 1964 HIV SCREENING 1979 HEPATITIS C SCREENING 06/19/1982 DTAP/TDAP/TD VACCINES (1 - Tdap) 1983 PAP SMEAR 1985 PNEUMOCOCCAL VACCINE 50+ (1 of 1 - PCV) 2014 ZOSTER VACCINE (1 of 2) 2014 DEPRESSION SCREENING 07/12/2024 COVID-19 VACCINE (1 - 2023-2 5 season) 2025 INFLUENZA VACCINE (#1) 2025 Respiratory Syncytial Virus (RSV) Vaccine Pt: or over 60 yrs (1 - 1-dose 75+ series) 2039 HEPATITIS B VACCINE Aged Out No longe r eligible based on patient's age to complete this topic HIB VACCINE Aged Out No longer eligi ble based on patient's age to complete this topic HPV VACCINE Aged Out No longer eligi ble based on patient's age to complete this topic MENINGOCOCCAL (Group B) VACC INE SHARED DECISION-MAKING Aged Out No longer eligibl e based on patient's age to complete this topic MENINGOCOCCAL GROUPS A/C/Y/W VACCINE Aged Out No longer eligible b ased on patient's age to complete this topic Insurance MEDICARE FOR[facility]LY [facility] Address: [facility] [address] [place] [address] MEDICARE
--- OUTSIDE RECORDS SUMMARY | 2025-05-23 16:08 | XMS_ITS | Clinical Summary ---
Author Organization [facility] Address [address] [place] [address] Care Team Providers Care Multi Punch Operator Name Role Phone Gerber Dorsey MD Primary Care Provider [phone] [phone] Allergies Active Allergy Reactions Criticality Noted Date Comments Celecoxib Chest tightness Medium 05/24/2023 Medications carvediloL (COREG) 3.125 mg tablet Take 1 tablet (3.125 mg total) by mouth every 12 (twelve) hours Active escitalopram (LEXAPRO) 10 mg tablet Take 1 tablet (10 mg total) by mouth nightly at bedtime 4 Active gabapentin (NEURONTIN) 600 mg tablet Take 1 tablet (600 mg total) by mouth nightly Active LANTUS 100 unit/mL (3 mL) pen for injection Inject 18 Units under the skin nightly Active losartan (COZAAR) 25 mg tablet Take 1 tablet (25 mg total) by mouth daily Active Linzess 72 mcg capsule Take 1 capsule (72 mcg total) by mouth daily Active nitroglycerin (NITROSTAT) 0.[address] 1 tablet (0.4 mg total) under the tongue every 5 (five) minutes as needed 8 Active Dexilant 60 mg capsule Take 1 capsule (60 mg total) by mouth daily Active atorvastatin (LIPITOR) 20 mg tablet Take 1 tablet (20 mg total) by mouth nightly at bedtime. Active docusate sodium (COLACE) 50 mg capsule Take 1 capsule (50 mg total) by mouth 2 (two) times a day Active HYDROcodone-ac etaminophen (NORCO) 7.5-325 mg per tablet Take 1 tablet by mouth every 8 (eight) hours as needed 7 Active HYDROcodone-ac etaminophen (VICODIN) 10-300 mg per tablet Take 1 tablet by mouth every 6 (six) hours as needed (Pain) for up to 10 doses Take either the hydrocodone acetaminophen 10/300 or your regular hydrocodone 7.5. Do not take both at the same time 10 tablet 5 Active predniSONE (DELTASONE) 10 mg tablet Take 2 tablets (20 mg) by mouth daily 15 tablet 5 Active Active Problems No known active problems Medical History Medical History Date Comments Diabetes mellitus Rheumatoid arthritis (HCC) GERD (gastroesophageal reflux disease) Social History Tobacco Use Types Packs/Day Years Used Date Smoking Tobacco: Never Tobacco Cessation:Counseling Given: Not Answered Personal Safety Answer Date Recorded Have you ever been in or are you currently in a harmful physical or emotional relationship or is someone making you feel afraid or unsafe? 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 Gender Identity Not on file Sexual Orientation Not on file Last Filed Vital Signs Vital Sign Reading Time Taken Comments Blood Pressure 165/74 10/24/2024 9:13 AM CDT Pulse 93 10/24/2024 9:13 AM CDT Temperature 36.8 C (98.3 F) 10/23/2024 11:32 PM CDT Respiratory Rate 29 10/24/2024 9:13 AM CDT Oxygen Saturation 99% 10/24/2024 9:13 AM CDT Inhaled Oxygen Concentration - - Weight 81.6 kg (180 lb) 10/23/2024 4:52 PM CDT Height 171.5 cm (5' 7.5) 10/23/2024 4:52 PM CDT Body Mass Index 27.78 10/23/2024 4:52 PM CDT Plan of Treatment Health Maintenance Due Date Last Done Comments Breast Cancer Screening-Mammogram 1964 Cervical Cancer Screening 1964 Colon Cancer Screening-Colonoscopy 1964 Depression Screening 1964 Hepatitis C Screening 1964 DTaP/Tdap/Td Vaccine (1 - Tdap) 1975 Hepatitis B Screening 1982 Regular Well Visit/Exam 18-64 1982 Zoster Vaccine (1 of 2) 2014 Covid-19 Vaccine (2024-2 6 season) 2025 06/16/2021, 10/15/2020, 09/23/2020 Influenza Vaccine (#1) 2025 06/11/2022 Pneumococcal vaccine <65 Aged Out No longer eligible based on patient's age to complete this topic [place] [address] AET SENIOR SUPPLEMENT MEDICARE A[employer] SENIOR SUPPLEMENT Care Teams Multi Punch Operator Relationship Specialty Start Date End Date Gerber Dorsey MD PCP - General Family Practice 12/04/21
--- OUTSIDE RECORDS SUMMARY | 2025-05-23 16:08 | XMS_ITS | Clinical Summary ---
Author Organization [facility]ie [facility] Address [address] [place] [address] Care Team Providers Care Flagstone Layer Name Role Phone Gerber Dorsey MD Primary Care Provider [phone] [phone] Allergies Active Allergy Reactions Criticality Noted Date Comments Amoxicillin Unknown 01/22/2012 Celecoxib Other (See Comments) Medium 10/07/2017 CHEST PAIN Medications aspirin (ECOTRIN EC) 81 mg Tablet, Delayed Release (E.C.) Take 81 mg by mouth. Active atorvastatin (LIPITOR) 20 mg tablet Take 20 mg by mouth daily at bedtime. 3 Active Dexilant 60 mg Delayed Release capsule Take 1 Capsule by mouth daily. 3 Active gabapentin (NEURONTIN) 600 mg tablet Take 600 mg by mouth daily at bedtime. 3 Active HumaLOG KwikPen Insulin 100 unit/mL pen syringe 3 Active etanercept 50 mg/mL (0.98 mL) Syringe Inject by subcutaneous injection every 7 days. Active Linzess 72 mcg Capsule capsule Take 72 mcg by mouth daily. Active LORazepam (ATIVAN) 1 mg tablet TAKE 1/2 TABLET BY MOUTH EVERY DAY NEEDED 3 Active losartan (COZAAR) 25 mg tablet Take 25 mg by mouth. 3 Active carvediloL (COREG) 6.25 mg tablet Take 6.25 mg by mouth 2 times daily with meals. Active nitroglycerin (NITRODUR) 0.4 mg/hr patch Apply 1 Patch to skin as directed daily. Active insulin glargine (LANTUS) 100 unit/mL pen syringe Inject by subcutaneous injection. Active prednisoLONE 5 mg tablet Take 10 mg by mouth daily. Active docusate sodium (COLACE) 50 mg capsule Take 50 mg by mouth 2 times daily. Active naloxone (NARCAN) 4 mg/spray [place], Non-Aerosol Active HYDROcodone-miguel taminophen (NORCO) 7.5-325 mg Tablet Take 1 Tablet by mouth every 4 hours as needed for Pain, Moderate. 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 02/18/2018 Arteriosclerosis of coronary artery 02/17/2018 CKD (chronic kidney disease) stage 3, GFR 30-59 ml/min 02/17/2018 Hyponatremia 02/17/2018 Normocytic normochromic anemia 02/17/2018 RA (rheumatoid arthritis) 02/17/2018 Diabetic polyneuropathy asso ciated with type 2 diabetes mellitus 10/07/2017 Diabetic vasculopathy 10/07/2017 Equinus contracture of ankle 10/07/2017 Family History Medical History Relation Name Comments Throat Cancer Brother Relation Name Status Comments Brother Father Mother Alive Sister 1 Alive Sister 2 Alive Social History Tobacco Use Types Packs/Day Years Used Date Smoking Tobacco: Never Smokeless Tobacco: Never Tobacco Cessation:Counseling Given: Not Answered Alcohol Use Standard Drinks/Week Comments Never 0 (1 standard drink = 0.6 oz pur e alcohol) Comments Unknown Sex and Gender Information Value Date Recorded Sex Assigned at Not on file Legal Sex Female 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 Gender Identity Not on file Sexual Orientation Not on file Last Filed Vital Signs Vital Sign Reading Time Taken Comments Blood Pressure 98/65 08/19/2023 1:59 PM PHOTOGRAPHY INSTRUCTOR Pulse 80 08/19/2023 1:59 PM PHOTOGRAPHY INSTRUCTOR Temperature 36.4 C (97.5 F) 08/19/2023 1:59 PM PHOTOGRAPHY INSTRUCTOR Respiratory Rate 14 08/19/2023 1:59 PM PHOTOGRAPHY INSTRUCTOR Oxygen Saturation 98% 08/19/2023 1:59 PM PHOTOGRAPHY INSTRUCTOR Inhaled Oxygen Concentration - - Weight 78.5 kg (173 lb) 08/19/2023 1:59 PM PHOTOGRAPHY INSTRUCTOR Height 170.2 cm (5' 7) 08/04/2023 3:18 PM PHOTOGRAPHY INSTRUCTOR Body Mass Index 27.1 08/04/2023 3:18 PM PHOTOGRAPHY INSTRUCTOR Plan of Treatment Health Maintenance Due Date Last Done Comments DIABETES ANNUAL RETINAL EXAM 1982 DIABETES MICROALBUMIN ANNUAL SCREEN 1982 LDL CHOLESTEROL ANNUAL 1982 DTAP/TDAP/TD VACCINES (1 - Tdap) 1983 HPV/Cotest (21-29) 1985 CERVICAL CANCER SCREENING 1994 HPV/Cotest (30-65) 1994 PAP SMEAR 1994 BREAST CANCER SCREENING 2004 COLORECTAL SCREENING 2009 Colorectal Cancer Screening 2009 FIT-DNA Q 3 years 2009 FIT/FOBT Q 1 year 2009 Flex Sig/CT Colonography Q 5 years 2009 RSV VACCINE (60+ or ) (1 - Risk 50-74 years 1-dose series) 2014 ZOSTER VACCINE (1 of 2) 2014 DIABETES ANNUAL FOOT EXAM 06/09/2017 06/09/2016 DIABETES HBA1C Q 6 MONTHS 11/22/20232022, 01/11/2023, 01/06/2023, Additional history exists INFLUENZA VACCINE (#1) 2025 HEPATITIS B VACCINES Aged Out No long er eligible based on patient's age to complete this topic Insurance MEDICARE PART A AND B [employer]ETNA MEDICARE SUPP AESSI MEDICARE PART A AND B T MEDICARE SUPP AESSI Care Teams Flagstone Layer Relationship Specialty Start Date End Date Gerber Dorsey MD [address] [place] [address] PCP - General Family Practice 08/04/23
--- OUTSIDE RECORDS SUMMARY | 2025-05-23 16:08 | XMS_ITS | Encounter Summary ---
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
--- OUTSIDE RECORDS SUMMARY | 2025-05-23 16:08 | XMS_ITS | Encounter Summary ---
Author Organization [facility] Address [address] [facility] [place] [address] Care Team Providers Care Blade Grinder Name Role Phone Unavailable Primary Care Provider Unavailabl e Encounter Details Date Type Department Care Team (Late st Contact Info) Description 01/11/2023 Lab Requisition [facility] - Pathology Lab [address] [place] [id number] Ajay Quintero MD [address] [address] Illness, unspecified Social History Tobacco Use Types Packs/Day Years [...] Procedure Name Priority Date/Time Associated Diagnosis Comments PATHOLOGY TISSUE Routine 01/07/2023 12:4 0 PM CDT Illness, unspecified documented in this encounter Results * PATHOLOGY TISSUE (01/07/2023 12:40 PM CDT) Case Report Surgical Pathology Report Case: [id number] Authorizing Provider: Ajay Quintero MD Collected: 01/07/2023 12:40 PM Ordering Location: [facility] Care Pathology Lab Received: 01/11/2023 09:28 AM Pathologist: Ebony Lee MD Specimen: Lymph Node Biopsy, left axilla biopsy 01/14/2023 10:15 AM CDT [facility] PATH[facility] Final Diagnosis Lymph node, left axilla, needle core biopsy: - Polyclonal plasmacytosis and sinus histiocytosis - No evidence of lymphoma, as sampled - See description 01/14/2023 10:15 AM [facility] PATHOLOGY LAB at 1617 CDT Microscopic Description and Comment Sections show cores of apparent pablito tissue with relatively preserved architecture. Sinuses are dilated and contain histiocytes. Lymphocytes are predominantly small with polymorphous morphology. There are increased numbers of small, cytologically bland plasma cells. Focally, plasma cell aggregates are noted. No large cell infiltrate is identified. To further evaluate the architecture, and to immunophenotype the plasma cell infiltrate, immunohistochemistry is performed. Controls are appropriately reactive. CD3 and CD20 show a mix of T-cells and B-cells, respectively, present in roughly equal proportions. CD21 shows follicular dendritic cell meshworks in the B-cell-rich areas. CD138 highlights the increased number of plasma cells. CD56 is negative in this infiltrate. [place] and lambda immunohistochemistry shows a polyclonal mix of light chain expression. Per report, flow cytometry shows no evidence of non-Hodgkin lymphoma ([id number], [email or web address] [address], [facility], [place] [address]). In summary, the sampled tissue from the left axillary lymph node shows no evidence of lymphoma. There is a polyclonal plasmacytosis noted. This can be observed as a reactive process or in the setting of autoimmune disease, chronic infection, etc. Clinical correlation is advised. A pancytokeratin has been ordered and will be reported as an addendum. 01/14/2023 10:15 AM [facility] PATH[facility] Clinical History 57 year old woman with left axillary adenopathy. 01/14/2023 10:15 AM [facility] PATH[facility] Materials Received Received are 5 slides, and 1 block (A1) labeled [id number] along with a copy of the outside pathology report. The materials originate from [facility], [address] [place] [address]. All original materials are returned to the referring institution, along with a copy of our final report. 01/14/2023 10:15 AM [facility] Addendum 1 A pancytokeratin immunostain with appropriately reactive control shows no evidence of metastatic carcinoma in this sample of tissue. There is no change to the diagnosis. 01/14/2023 10:15 AM [facility] Addendum electronically signed by Ebony Lee MD on 01/14/2023 at 1015 CDT Pathologist Location at [facility] 01/14/2023 10:15 AM CDT [facility] PATHOLOGY LAB Disclaimer The performance characteristics of all immunohistochemical and indirect immunofluorescence stains (if any) cited in this report were determined by the Histopathology Laboratory of [facility]. Some of these tests were developed by our own laboratory and have not been cleared or approved by the US Food and Drug Administration. The FDA does not require this test to go through premarket FDA review. These tests are used for clinical purposes. They should not be regarded as investigational or for research. This laboratory is certified under the Clinical Laboratory Improvement Amendments (CLIA) as qualified to perform high complexity clinical laboratory testing. This case has been personally reviewed and interpreted by the attending (teaching) pathologist. 01/14/2023 10:15 AM CDT [facility] PATH[facility] LAB Embedded Images 01/14/2023 10:15 AM T [facility] PATHOLOGY LAB Pathology/Cytolo gy BIOPSY OF LYMPH NODE / Unknown 01/07/2023 12:40 PM CDT 01/11/2023 9:28 AM CDT Ajay Quintero MD LAB - PATHOLOGY/CYTOLOGY ORDERAB LES Edited Result - Final [facility] PATHOLOG[facility] LAB [address] [phone] documented in this encounter Visit Diagnoses Diagnosis Illness, unspecified documented in this encounter
[2025-05-23 16:20] LABS: Hematocrit 22.4 % (37.0-47.0); Hemoglobin 7.1 g/dL (12.0-15.0); Immature Granulocyte Percent A 0.2 % (0-0.5); Lymphocytes Absolute Auto 1.39 K/mm3 (0.9-3.2); Mean Corpuscular HGB Conc 31.7 g/dl (32-36); Mean Corpuscular Hemoglobin 29.2 pg (26-34); Mean Corpuscular Volume 92.2 fl (80-100); Nucleated Red Blood Cells Absolute Auto 0.000 K/mm3 (0.0-0.012); Nucleated Red Blood Cells Perc 0.0 % (0.0-0.2); Platelet Count Result 311 k/mm3 (150-375); Red Blood Count 2.43 M/mm3 (4.2-5.4); White Blood Count 4.2 K/mm3 (4.5-10.0)
[2025-05-23 16:25] LABS: Hemoglobin A1C 6.9 % (<5.7)
[2025-05-23 16:30] LABS: Alanine Aminotransferase 10 U/L (6-35); Albumin Level 3.5 g/dL (3.5-5.1); Alkaline Phosphatase 87 U/L (38-126); Anion Gap 5 mmol/L (4-12); Aspartate Amino Transferase 19 U/L (14-36); Bilirubin,Total 0.7 mg/dL (0.2-1.3); Blood Urea Nitrogen 36 mg/dL (7-17); Calcium 8.8 mg/dL (8.4-10.2); Carbon Dioxide 25 mmol/L (22-30); Chloride 100 mmol/L (98-107); Cholesterol 108 mg/dL (0-200); Estimated Glomerular Filt Rate 54; Glucose 285 mg/dL (65-110); HDL Direct 40 mg/dL; Potassium 4.4 mmol/L (3.4-5.0); Sodium 130 mmol/L (137-145); Total Protein 7.2 g/dL (6.3-8.2); Triglycerides 82 mg/dL (<150)
[2025-05-23 16:33] LABS: Iron 39 ug/dL (37-170)
[2025-05-23 16:44] LABS: Percent Iron Saturation 18 % (20-50)
[2025-05-23 17:14] LABS: Ferritin 171.00 ng/mL (11.1-264)
[2025-05-23 17:19] LABS: Vitamin B12 451.0 pg/mL (239-931)
== END 2025-05-23 15:28 | disposition home or self-care (01) ==
PROVIDERS: PCP Family Medicine; Visit Provider Family Medicine
DX: E78.5 Hyperlipidemia, unspecified (principal); I10 Essential (primary) hypertension; D64.9 Anemia, unspecified; I25.10 Atherosclerotic heart disease of native coronary artery without angina pectoris; E10.9 Type 1 diabetes mellitus without complications; F34.1 Dysthymic disorder; R79.89 Other specified abnormal findings of blood chemistry; E22.2 Syndrome of inappropriate secretion of antidiuretic hormone; R19.7 Diarrhea, unspecified; M25.532 Pain in left wrist
CPT/HCPCS: 36415; 80053; 80061; 82607; 82728; 83036; 83540; 83550; 85025